=== PATIENT | male | born 1975 | race Caucasian/White ===

== ENCOUNTER → 2017-04-14 02:56 | Emergency (ER) | payer OTHER ==
[~2017-04-14 02:56] MED LIST: GENTAMICIN ADULT IVPB ONE; Ketorolac INJ* 30 MG/ML 1 ML VIAL IV ONE; NS 0.9% 1000 ML* 2,000 ML IV ONE; NS 0.9% 1000 ML* 500 ML IV ONE; NS 0.9% IVPB ONE; Ondansetron INJ* 2 MG/ML VIAL IV ONE
[2017-04-14 03:58] LABS: Hematocrit 42 % (42-52); Hemoglobin 14.7 g/dl (14.0-18.0); Mean Corpuscular HGB Conc 35 g/dl (31-36); Mean Corpuscular Hemoglobin 32 pg (27-31); Mean Corpuscular Volume 91 fL (80-94); Mean Platelet Volume 7 um3 (7.4-10.4); Red Blood Count 4.64 10^6/ul (4.0-5.4); Red Cell Distribution Width 13 % (10.5-15); White Blood Count 7.6 10^3/ul (3.5-10.8)
[2017-04-14 04:05] LABS: Urine Bacteria Absent (Absent); Urine Bilirubin Negative (Negative); Urine Glucose 3+(>=500 mg/dL) (Negative); Urine Nitrite Negative (Negative)
[2017-04-14 04:17] LABS: ALT 27 U/L (7-52); Alkaline Phosphatase 47 U/L (34-104); BUN/Creatinine Ratio 12.5 (8-20); Blood Urea Nitrogen 14 mg/dL (6-24); C Reactive Protein 1.07 mg/L (< 5.00); CO2 Carbon Dioxide 28 mmol/L (22-32); Calcium 9.3 mg/dL (8.6-10.3); Chloride 100 mmol/L (101-111); EGFR African American 93.4 (>60); EGFR Non-African American 72.6 (>60); Glucose 313 mg/dL (70-100); Lipase 40 U/L (11.0-82.0); Sodium 133 mmol/L (133-145); Total Protein 6.8 g/dL (6.4-8.9)
[2017-04-14 04:42] LABS: Anion Gap 5 mmol/L (2-11)
--- NOTE | 2017-04-14 05:42 | ED ---
Nilesh Hoyt Angela, scribed for Margret Anaya MD on 04/14/17 at 0324 . Back Pain - HPI Summary HPI Summary: This pt is a 41 y/o male presenting [facility] c/o right flank pain since 0030 today. Pt reports that his pain has progressively worsened. He additionally c/o nausea, urinary frequency and urgency. Pt denies fever, chills. Pt has PMHx: kidney stone, diabetes type II, hypercholesterolemia. He states that he smokes marijuana and drinks alcohol occasionally. His PCP is Dr. Clark. - History of Current Complaint Chief Complaint: EDFlankPain Stated Complaint: RIGHT FLANK PAIN Hx Obtained From: Patient Onset/Duration: Sudden Onset Onset/Duration: Started Hours Ago Timing: Constant Back Pain Location: Is Discrete @ - right flank pain Pain Intensity: 8 Pain Scale Used: 0-10 Numeric Associated Signs And Symptoms: Positive: Flank Pain - right sided, Other - nausea. Negative: Fever, Weakness, Numbness - Allergies/Home Medications Allergies/Adverse Reactions: Allergies Allergy/AdvReac Type Severity Reaction Status Date / Time Bee Venom Allergy Severe Swelling Verified 04/14/17 03:18 Of Face,Lips,& Throat Ibuprofen Allergy Swelling Verified 04/14/17 03:18 PMH/Surg Hx/FS Hx/Imm Hx Endocrine/Hematology History: Reports: Hx Diabetes - type II Denies: Hx Thyroid Disease Cardiovascular History: Reports: Hx Hypercholesterolemia Denies: Hx Hypertension, Hx Pacemaker/ICD Respiratory History: Reports: Hx Pneumonia Denies: Hx Asthma, Hx Chronic Obstructive Pulmonary Disease (COPD) GI History: Denies: Hx Ulcer Sensory History: Reports: Hx Contacts or Glasses, Hx Vision Problem, Hx Hearing Problem - 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 VASECTOMY. WISDOM TEETH Infectious Disease History: No Infectious Disease History: Denies: Hx Clostridium Difficile, Hx Hepatitis, Hx Human Immunodeficiency Virus (HIV), Hx of Known/Suspected MRSA, Hx Shingles, Hx Tuberculosis, Hx Known/ Suspected VRE, Hx Known/Suspected VRSA, History Other Infectious Disease, Traveled Outside the [place] in Last 30 Days - Family History Known Family History: Positive: Cardiac Disease, Diabetes, Other - Denies FHx of kidney stones - Social History Lives: With Family - Alcohol Use: Occasionally Alcohol Amount: a few times a week Substance Use Type: Reports: Marijuana Substance Use Comment - Amount & Last Used: occasionally Smoking Status (MU): Never Smoked Tobacco Have You Smoked in the Last Year: No Review of Systems Negative: Fever, Chills Eyes: Negative ENT: Negative Negative: Palpitations, Chest Pain Negative: Shortness Of Breath Positive: Nausea. Negative: Abdominal Pain, Vomiting, Diarrhea Positive: frequency, urgency Musculoskeletal: Negative Skin: Negative Negative: Headache, Weakness All Other Systems Reviewed And Are Negative: Yes Physical Exam Triage Information Reviewed: Yes Vital Signs On Initial Exam: Initial Vitals Temp Pulse Resp BP Pulse Ox 97.3 F 95 18 141/111 99 04/14/17 03:04/14/17 03:04/14/17 03:04/14/17 03:04/14/17 03:09 Vital Signs Reviewed: Yes Appearance: Positive: Well-Appearing, No Pain Distress Skin: Positive: Warm, Skin Color Reflects Adequate Perfusion, Dry Eyes: Positive: EOMI, HOWARD ENT: Positive: Pharynx normal, TMs normal Neck: Positive: Supple, Nontender Respiratory/Lung Sounds: Positive: Clear to Auscultation, Breath Sounds Present. Negative: Rales, Rhonchi, Wheezes Cardiovascular: Positive: RRR. Negative: Murmur, Rub, Other - gallop Abdomen Description: Positive: Nontender, Soft. Negative: Distended, Guarding, Other: - rebound Bowel Sounds: Positive: Present Musculoskeletal: Positive: Strength/ROM Intact. Negative: Edema Left, Edema Right Neurological: Positive: Sensory/Motor Intact, Alert, Oriented to Person Place, Time, CN Intact II-III Psychiatric: Positive: Affect/Mood Appropriate - Gerald Coma Scale Coma Scale Total: 15 Diagnostics - Vital Signs Vital Signs Temp Pulse Resp BP Pulse Ox 04/14/17 03:17 97.3 F 95 18 141/111 99 04/14/17 03:09 97.3 F 95 18 141/111 99 - Laboratory Lab Results: Lab Results 04/14/17 04/14/17 04/14/17 Range/Units 03:45 03:45 03:45 WBC 7.6 (3.5-10.8) 10^3/ul RBC 4.64 (4.0-5.4) 10^6/ul Hgb 14.7 (14.0-18.0) g/dl Hct 42 (42-52) % MCV 91 (80-94) fL MCH 32 H (27-31) pg MCHC 35 (31-36) g/dl RDW 13 (10.5-15) % Plt Count 205 (150-450) 10^3/ul MPV 7 L (7.4-10.4) um3 Neut % (Auto) 67.3 (38-83) % Lymph % (Auto) 22.5 L (25-47) % Whitman % (Auto) 7.5 (1-9) % Eos % (Auto) 2.2 (0-6) % Baso % (Auto) 0.5 (0-2) % Absolute Neuts (auto) 5.1 (1.5-7.7) 10^3/ul Absolute Lymphs (auto) 1.7 (1.0-4.8) 10^3/ul Absolute Monos (auto) 0.6 (0-0.8) 10^3/ul Absolute Eos (auto) 0.2 (0-0.6) 10^3/ul Absolute Basos (auto) 0 (0-0.2) 10^3/ul Absolute Nucleated RBC 0 10^3/ul Nucleated RBC % 0.1 Sodium 133 (133-145) mmol/L Potassium TNP Chloride 100 L (101-111) mmol/L Carbon Dioxide 28 (22-32) mmol/L Anion Gap 5 (2-11) mmol/L BUN 14 (6-24) mg/dL Creatinine 1.12 (0.67-1.17) mg/dL Est GFR ( Amer) 93.4 (>60) Est GFR (Non-Af Amer) 72.6 (>60) BUN/Creatinine Ratio 12.5 (8-20) Glucose 313 H (70-100) mg/dL Calcium 9.3 (8.6-10.3) mg/dL Total Bilirubin 0.90 (0.2-1.0) mg/dL AST TNP ALT 27 (7-52) U/L Alkaline Phosphatase 47 (34-104) U/L C-Reactive Protein 1.07 (< 5.00) mg/L Total Protein 6.8 (6.4-8.9) g/dL Albumin Pending Globulin Pending Albumin/Globulin Ratio Pending Lipase 40 (11.0-82.0) U/L Urine Color Yellow Urine Appearance Clear Urine pH 6.0 (5-9) Ur Specific [place] 1.025 (1.010-1.030) Urine Protein Negative (Negative) Urine Ketones Negative (Negative) Urine Blood 3+ H (Negative) Urine Nitrate Negative (Negative) Urine Bilirubin Negative (Negative) Urine Urobilinogen Negative (Negative) Ur Leukocyte Esterase Negative (Negative) Urine WBC (Auto) 2+(11-20/hpf) H (Absent) Urine RBC (Auto) 3+(>10/hpf) H (Absent) Urine Bacteria Absent (Absent) Urine Glucose 3+(>=500 mg/dl) H (Negative) 04/14/17 Range/Units 04:50 WBC (3.5-10.8) 10^3/ul RBC (4.0-5.4) 10^6/ul Hgb (14.0-18.0) g/dl Hct (42-52) % MCV (80-94) fL MCH (27-31) pg MCHC (31-36) g/dl RDW (10.5-15) % Plt Count (150-450) 10^3/ul MPV (7.4-10.4) um3 Neut % (Auto) (38-83) % Lymph % (Auto) (25-47) % Whitman % (Auto) (1-9) % Eos % (Auto) (0-6) % Baso % (Auto) (0-2) % Absolute Neuts (auto) (1.5-7.7) 10^3/ul Absolute Lymphs (auto) (1.0-4.8) 10^3/ul Absolute Monos (auto) (0-0.8) 10^3/ul Absolute Eos (auto) (0-0.6) 10^3/ul Absolute Basos (auto) (0-0.2) 10^3/ul Absolute Nucleated RBC 10^3/ul Nucleated RBC % Sodium (133-145) mmol/L Potassium TNP Chloride (101-111) mmol/L Carbon Dioxide (22-32) mmol/L Anion Gap (2-11) mmol/L BUN (6-24) mg/dL Creatinine (0.67-1.17) mg/dL Est GFR ( Amer) (>60) Est GFR (Non-Af Amer) (>60) BUN/Creatinine Ratio (8-20) Glucose (70-100) mg/dL Calcium (8.6-10.3) mg/dL Total Bilirubin (0.2-1.0) mg/dL AST TNP ALT (7-52) U/L Alkaline Phosphatase (34-104) U/L C-Reactive Protein (< 5.00) mg/L Total Protein (6.4-8.9) g/dL Albumin Globulin Albumin/Globulin Ratio Lipase (11.0-82.0) U/L Urine Color Urine Appearance Urine pH (5-9) Ur Specific [place] (1.010-1.030) Urine Protein (Negative) Urine Ketones (Negative) Urine Blood (Negative) Urine Nitrate (Negative) Urine Bilirubin (Negative) Urine Urobilinogen (Negative) Ur Leukocyte Esterase (Negative) Urine WBC (Auto) (Absent) Urine RBC (Auto) (Absent) Urine Bacteria (Absent) Urine Glucose (Negative) Result Diagrams: 04/14/17 03:45 04/14/17 04:50 Lab Statement: Any lab studies that have been ordered have been reviewed, and results considered in the medical decision making process. - CT Abdomen/Pelvis CT CT Interpretation: Positive (See Comments) - IMPRESSION: Mild right hydronephrosis and perinephric inflammation secondary to a 4 mm distal right ureteral stone. Multiple additional small bilateral renal stones. Fatty liver. ED physician has reviewed this radiology report and agrees. CT Interpretation Completed By: Radiologist Back Pain Course/Dx - Course Course Of Treatment: 41 yo male with pmh of kidney stones here with right flank pain with onset just after midnight. Pt is diabetic and has a 4mm distal ureteral stone with urine showing 11-20 wbc's. Case was discussed with Dr. Peters who asked for 2mg/kg of gent in addition to the 2grams of ceftriaxone already given and 500 cc of NS in addition to the 2L of NS already given. Pt will also get a kub and is being kept NPO. Dr. Peters will be coming to see the pt in the ED this am and pt is being signed out to Dr. Gonzalez - Diagnoses Provider Diagnoses: Kidney stone on right side, UTI (urinary tract infection) - Provider Notifications Discussed Care Of Patient With: Dillon Us Time Discussed With Above Provider: 05:35 Instructed by Provider To: Other - I discussed the pt's case with Dr. Us. He will come see the pt in the ED. Discharge - Discharge Plan Condition: Stable Disposition: OTHER Discharge Disposition Comment: to be determined The documentation as recorded by the Nilesh foley Angela accurately reflects the service I personally performed and the decisions made by me, Margret Anaya MD.
[2017-04-14 06:18] LABS: Albumin 4.2 g/dL (3.2-5.2); Globulin 2.6 g/dL (2-4)
--- NOTE | 2017-04-14 08:14 | RAD ---
CLINICAL HISTORY: Right flank pain COMPARISON: April 01, 2015 TECHNIQUE: Multiple contiguous axial CT scans were obtained of the abdomen and pelvis, without intravenous contrast enhancement. Coronal and sagittal multiplanar reformations are submitted for review. Oral contrast was not administered. FINDINGS: The study is limited by the lack of intravenous contrast. This limits evaluation of the solid organs and vasculature. LUNG BASES: The lung bases are clear. LIVER: The liver is diffusely low in attenuation compared to the spleen. There are no focal hepatic parenchymal masses. The liver measures 18.9 cm in long axis. BILE DUCTS: There is no intrahepatic or extrahepatic biliary dilatation. GALLBLADDER: The gallbladder is incompletely distended but is grossly normal. PANCREAS: The pancreas is normal, without mass or ductal dilatation. SPLEEN: Normal in size and appearance. UPPER GI TRACT: Evaluation of the gastrointestinal tract is limited by incomplete gastric distention. The upper GI tract is unremarkable. SMALL BOWEL AND MESENTERY: There is no obstruction. There is mild stranding of mesenteric fat with prominence of mesenteric lymph nodes without lymphadenopathy by size criteria. COLON: The colon is normal in contour, course, caliber. There is no pericolonic inflammatory change. ADRENALS: Normal bilaterally. KIDNEYS: There are multiple bilateral renal calyceal stones measuring up to 0.3 cm in size. There is a 0.4 cm right UVJ stone with mild hydroureter. BLADDER: As noted above, there is a right UVJ stone. The bladder is incompletely distended but is otherwise grossly normal. PELVIC ORGANS: The prostate gland is normal. The seminal vesicles are symmetric. AORTA: The aorta is normal. IVC: Unremarkable LYMPH NODES: As noted above, there are prominent but not pathologically enlarged mesenteric lymph nodes at the root of the small bowel mesentery. There is no lymphadenopathy by size criteria. ABDOMINAL WALL: There is no evidence for abdominal wall hernia. BONES AND SOFT TISSUES: Mild degenerative changes are noted OTHER: None IMPRESSION: 1. BILATERAL HYDRONEPHROSIS, INCLUDING A 0.4 CM RIGHT UVJ STONE WITH MILD HYDROURETER. 2. HEPATOMEGALY WITH FATTY INFILTRATION OF THE LIVER. 3. MILD STRANDING OF THE MESENTERIC FAT WITH PROMINENT MESENTERIC LYMPH NODES. THE DIFFERENTIAL INCLUDES MESENTERIC PANNICULITIS.
--- NOTE | 2017-04-14 08:20 | RAD ---
HISTORY: Distal ureteral stone COMPARISONS: CT dated April 14, 2017 VIEWS: Frontal views of the abdomen. FINDINGS: BOWEL: There is a nonobstructive bowel gas pattern. There is a moderate amount of stool within the colon. CALCULI: The renal calyceal stones noted on CT are not well visualized, though evaluation is limited by overlying bowel. There is a calculus of the right lower hemipelvis which appears to correspond to the right UVJ stone. BONES AND SOFT TISSUES: There are no osseous abnormalities. OTHER FINDINGS: The lung bases are clear. There is no subphrenic gas. IMPRESSION: RIGHT PELVIC CALCULUS THAT APPEARS TO CORRESPOND TO THE RIGHT UVJ STONE NOTED ON CT
--- NOTE | 2017-04-14 10:03 | RAD ---
HISTORY: Bilateral hydronephrosis, right UVJ stone COMPARISONS: CT dated April 14, 2017 TECHNIQUE: Multiple transverse and longitudinal ultrasound images were obtained of the pelvis using grayscale and color Doppler imaging using the transabdominal transducer. FINDINGS: PROSTATE: Prostate gland is homogeneous in echotexture The prostate gland measures 3.9 x 3.2 x 3.9 centimeters, for a volume of 25.8 milliliters. SEMINAL VESICLES: The seminal vesicles are not well-visualized BLADDER: The bladder is smooth in contour. Bilateral ureteral jets are identified. The prevoid bladder volume is 176 milliliters.. The postvoid bladder volume is 3 milliliters. IMPRESSION: BILATERAL URETERAL JETS ARE NOTED. THERE IS A 3 ML POST VOID RESIDUAL.
--- NOTE | 2017-04-14 11:43 | ED ---
Kim Hoyt Thomas, scribed for Tom Gonzalez MD on 04/14/17 at 1126 . Progress - Progress Note Progress Note: The patient is a sign out from Dr. Anaya at shift change. Dr. Us, urology, came to see the patient in the ED at 08:00. He checked an U/S to make sure he had bilateral jets which he did. The patient is diagnosed with kidney stone and is discharged home in stable condition.. Course/Dx - Diagnoses Provider Diagnoses: Kidney stone The documentation as recorded by the iKm floey Thomas accurately reflects the service I personally performed and the decisions made by me, Tom Gonzalez MD.
[2017-04-14 12:05] VITALS: BP 128/74
--- NOTE | 2017-04-14 14:58 | CONS ---
CC: Dr. Leroy Clark * UROLOGY CONSULTATION: DATE OF CONSULTATION: 04/14/17 REQUESTING PHYSICIAN: Dr. Margret Anaya. DIAGNOSES: 1. Right hydronephrosis. 2. Calculus, right ureter. HISTORY: Sukumar Linn is a 41-year-old diabetic who presented to the emergency room with right flank pain and nausea. CT scan revealed a 4 to 5 mm obstructing stone at the right ureterovesical junction with right hydronephrosis. He has required intravenous analgesics and at the time of this consultation, at around 7:30, had just requested and received an additional dose of analgesics 10 minutes prior to that. He still describes the pain as moderate. PAST MEDICAL HISTORY: Significant for: 1. Diabetes mellitus. 2. High cholesterol. MEDICATIONS ON ADMISSION: 1. Insulin 10 units subcu daily. 2. Valtrex 500 mg daily p.r.n. 3. Glucophage extended release 750 mg b.i.d. 4. Naprosyn p.r.n. ALLERGIES AND INTOLERANCES: IBUPROFEN and BEE VENOM. REVIEW OF SYSTEMS: He denies any chest pain or shortness of breath. There is no other major systemic illness. PHYSICAL EXAMINATION: Physical exam reveals a pleasant, moderately uncomfortable young gentleman. Blood pressures 133/83, pulse 84 per minute regular, temperature 98.1, oxygen saturation 98% on room air. Cardiovascular Exam: Regular rate and rhythm. S1, S2. Lungs are clear bilaterally. Abdomen is soft with mild right flank tenderness. DIAGNOSTIC STUDIES/LAB DATA: Review of labs revealed a white count of 7.6, hemoglobin is 14.7, hematocrit is 42, platelet count is 205. BUN and creatinine are normal at 14 and 1.1 respectively. Urinalysis revealed 3+ blood , 2+ white blood cells and absent bacteria. PLAN/RECOMMENDATIONS: I reviewed the labs and the imaging studies and had a detailed discussion with Sukumar regarding the management of a 4 to 5 mm distal right ureteral calculus. I recommended conservative management, including oral analgesics and Flomax to help with medical expulsive therapy. At the present time, I do not see any indication for surgical intervention and I have explained this to him. Because of the continued pain he would like to be observed in the emergency room for a little bit longer and this is certainly reasonable. I have also instructed him to call me if he has worsening pain, fever over 101 and otherwise he has been instructed to call me for outpatient followup. [id number]/[facility] #: [id number] YARELY
== END ==
LOC: ED 02:56
DX: N20.0 Calculus of kidney (principal); R10.84 Generalized abdominal pain; N39.0 Urinary tract infection, site not specified
CPT/HCPCS: 36415; 74000; 74176; 76857; 80053; 81003; 81015; 83690; 85025; 86140; 96374; 96375; 99284; J0696; J1580; J1885; J2405

== ENCOUNTER 2017-04-16 03:22 | Observation (INO) | payer OTHER ==
[2017-04-16] MEDS ORDERED: diPHENhydraMINE IV* 50 MG/ML 1 ml VIAL (BENADRYL) IV ONE (03:51)
[2017-04-16] MEDS ORDERED: Famotidine IV* 10 MG/ML 2 ML (20 mg) IV SLOW PU ONE (03:51)
[2017-04-16] MEDS ORDERED: methylPREDNISolone 125 MG* 2 ML VIAL IV ONE (03:51)
[2017-04-16] MEDS ORDERED: Albuterol 2.5 MG/3 ML NEB.SOL* (0.083%) INH ONE (03:52)
[2017-04-16] MEDS ORDERED: Morphine INJ* 4 MG/ML 1 ML CARPUJECT IV ONE ×2 (03:53→05:11)
[2017-04-16] MEDS ORDERED: NS 0.9% 1000 ML* 1,000 ML IV ONE (03:54)
[2017-04-16] MEDS ORDERED: Ondansetron INJ* 2 MG/ML VIAL IV ONE ×2 (03:54→05:50)
[2017-04-16] MEDS ORDERED: Magnesium CITRATE* 300 ML BTL PO ONE (05:24)
[2017-04-16] MEDS ORDERED: Sodium Phosphate ADULT ENEMA* 118 ml bottle PR ONE (05:24)
[2017-04-16] MEDS ORDERED: Ondansetron INJ* 2 MG/ML VIAL ONE ×2 (05:40→14:20)
[2017-04-16 06:02] LABS: Hematocrit 41 % (42-52); Hemoglobin 14.2 g/dl (14.0-18.0); Mean Corpuscular HGB Conc 35 g/dl (31-36); Mean Corpuscular Hemoglobin 32 pg (27-31); Mean Corpuscular Volume 91 fL (80-94); Mean Platelet Volume 8 um3 (7.4-10.4); Red Blood Count 4.49 10^6/ul (4.0-5.4); Red Cell Distribution Width 13 % (10.5-15)
[2017-04-16 06:13] LABS: BUN/Creatinine Ratio 14.1 (8-20); Calcium 9.2 mg/dL (8.6-10.3); EGFR Non-African American 62.2 (>60)
[2017-04-16 06:33] LABS: Potassium 4.2 mmol/L (3.5-5.0)
[2017-04-16] MEDS ORDERED: diPHENhydraMINE IV* 50 MG/ML 1 ml VIAL (BENADRYL) SLOW PUSH ONE (07:25)
--- NOTE | 2017-04-16 08:35 | RAD ---
Indication: Follow-up RIGHT ureteral stones. Comparison: April 14, 2017 CT and ultrasound of the urinary bladder. Technique: Ultrasound urinary bladder. REPORT AND IMPRESSION: 239 mL estimated prevoid urinary bladder volume. Upper normal 3.7 mm urinary bladder wall. No focal bladder lesions evident. Decreased magnitude RIGHT versus LEFT ureteral jet. 0.6 cm shadowing stone at the RIGHT ureterovesicular junction without change compared with the prior CT.
--- NOTE | 2017-04-16 08:51 | RAD ---
Indication: RIGHT flank pain. Assess for stone position. Stone at the ureterovesicular junction on April 14, 2017 CT. Comparison: April 16, 2017 urinary bladder ultrasound, April 14, [address] Technique: Supine view of the abdomen. Report: Unremarkable bowel gas pattern. Large volume of stool in the colon without moderate rectal distension. 4 mm calcification visualized at the level of the RIGHT ureterovesicular junction without change. The renal fossa are significantly obscured due to bowel contents without definitive visualized stones despite finding on prior CT. Unremarkable soft tissue contours. IMPRESSION: Persistent stone at the RIGHT ureterovesicular junction.
[2017-04-16] MEDS ORDERED: Ondansetron INJ* 2 MG/ML VIAL IV PRN ×2 (08:54→14:12)
[2017-04-16] MEDS ORDERED: Morphine INJ* 4 MG/ML 1 ML CARPUJECT IV PRN (08:54)
--- NOTE | 2017-04-16 09:38 | PN ---
Bradly Hoyt SooYoung, scribed for Kevin Wilson MD on 04/16/17 at 0824 . Progress Note - Progress Note Date of Service: 04/16/17 Note: Signed out from Dr. Brown pending U/S results. Pt is a 41 y/o M BIBA presenting to ED with allergic reaction to Percocet. Known kidney stones. 0815: ED Physician at bedside Updating pt about U/S results and consult with Dr. Us. Discussing with pt preference for D/C or admittance. Pt states a preference for being admitted due to the kidney stone as well as the allergic reaction to Percocet. He states mild pain, but is mostly feeling tired. He took Mg citrate approx 90 minutes ago. Brief PE is nml. DIAGNOSTICS Bladder U/S as read by radiologist REPORT AND IMPRESSION: 239 mL estimated prevoid urinary bladder volume. Upper normal 3.7 mm urinary bladder wall. No focal bladder lesions evident. Decreased magnitude RIGHT versus LEFT ureteral jet. 0.6 cm shadowing stone at the RIGHT ureterovesicular junction without change compared with the prior CT. ED physician has reviewed this radiology report and agrees. P/E: Vital signs reviewed. Vital signs: reviewed General: Patient is comfortable lying in stretcher with no signs of distress HEENT: within normal limits Lungs: CTA B/L CVS: S1 & S2 present. No murmurs appreciated. ABDOMEN: Soft, non-tender. No signs of distention. No rebound no guarding, and no masses palpated. Bowel sounds are normal. EXTREMITIES: FROM in all major joints, no edema, no cyanosis or clubbing. NEURO: Alert and oriented x 3. No acute neurological deficits. Speech is normal and follows commands. SKIN: Dry and warm CONSULTS 0813: Consulted with Dr. Us, urology Recommends D/C is pt is comfortable, otherwise admit to hospitalist. 0818: Consulted with Dr. Us, urology Agrees with admission to the hospitalist. 0851: Consulted with Dr. Fields, hospitalist Will admit patient to her services. DX: KIDNEY STONES. CONSTIPATION. ALLERGIC REACTION. DISPO: STABLE. ADMIT TO [facility]. The documentation as recorded by the Bradly foley SooYoung accurately reflects the service I personally performed and the decisions made by , Kevin Wilson MD.
[2017-04-16] MEDS ORDERED: NS 0.9% 1000 ML* 1,000 ML IV SCH (11:45)
[2017-04-16] MEDS ORDERED: Influenza VAC *QUAD* 2017-18* 0.5 ML SYRINGE IM ONE (12:00)
[2017-04-16] MEDS ORDERED: fentaNYL* 50 MCG/ML 2 ML VIAL (100 MCG VIAL) ONE (13:31)
[2017-04-16] MEDS ORDERED: Midazolam* 1 MG/ML 5 ML VIAL (5 MG) ONE (13:31)
[2017-04-16] MEDS ORDERED: Propofol* 10 MG/ML 20 ML BTL IV PUSH ONE (13:31)
[2017-04-16] MEDS ORDERED: Dexamethasone IV* 4 MG/ML 1 ML (4 MG) ONE (13:31)
[2017-04-16] MEDS ORDERED: Iohexol 180 (CONTRAST) 10 ML SDV IV ONE (13:39)
[2017-04-16] MEDS ORDERED: Dextrose 50% Syringe 50 ML* 25 GM/50 ML SYRINGE IV PUSH PRN (13:50)
[2017-04-16] MEDS ORDERED: Scopolamine 1.5 mg* PATCH TRANSDERM PRN (14:12)
[2017-04-16] MEDS ORDERED: fentaNYL* 50 MCG/ML 2 ML VIAL (100 MCG VIAL) IV PRN (14:12)
[2017-04-16] MEDS ORDERED: DiMENhydriNATE IV* 50 MG/ML VIAL IV PUSH PRN (14:12)
[2017-04-16] MEDS: Insulin LISPRO* 1 UNITS UNIT SUBCUT SCH ×2 (16:09→17:34)
--- NOTE | 2017-04-16 16:14 | HP ---
CC: Leroy Clark MD * HISTORY AND PHYSICAL: DATE OF ADMISSION: 04/16/17 PRIMARY CARE PROVIDER: Leroy Clark MD ATTENDING PHYSICIAN: Madelyn Paiz MD* (dictated by Esperanza Foster NP). CHIEF COMPLAINT: Allergic reaction to medications. HISTORY OF PRESENT ILLNESS: Mr. Linn is a 41-year-old male with a past medical history of significant for kidney stones, diabetes mellitus, hypertension and hyperlipidemia, who presented to the emergency room with complaints of allergic reaction after taking PERCOCET, CIPRO, and FLOMAX at home. The patient states that he woke up first with itching in his scalp that then spread over his body. He then developed hives, wheezing, and tongue swelling and had lip tingling. He has an EpiPen at home due to a BEE allergy, and administered his own EpiPen. He was also administered Benadryl by EMS. The patient was brought to the emergency room by EMS. While in the emergency room, the patient received Solu-Medrol, Benadryl, and albuterol nebulizer in addition to IV fluids, Zofran for his allergic reaction. The patient also had an abdominal x-ray as the patient had been passing a kidney stone since Monday. The patient's KUB showed a persistent stone at the right ureterovesical junction. He also had a bladder ultrasound showing a decreased magnitude of the right versus left ureteral jet and shadowing stone at the right ureterovesical junction without change compared to the prior CT. The hospitalists were asked to evaluate the patient for admission. The patient denies any fever, chills, chest pain. He does report having shortness of breath during his episode of the allergic reaction in addition to nausea and constipation. PAST MEDICAL HISTORY: 1. Kidney stones. 2. Diabetes mellitus. 3. Hypertension. 4. Hyperlipidemia. PAST SURGICAL HISTORY: 1. Status post facetectomy. 2. Status post left knee surgery. HOME MEDICATIONS: Include: 1. PERCOCET 5/325 mg 1 tablet oral every 6 hours as needed for pain. 2. Lisinopril 2.5 mg oral daily. 3. Lantus 30 units subcutaneous every 24 hours. 4. Lipitor 20 mg oral daily. 5. Valtrex 500 mg oral daily as needed for outbreak. 6. FLOMAX 0.4 mg oral daily. 7. Metformin 1000 mg oral twice daily. 8. Vascepa 2 tablets oral daily. 9. CIPRO 500 mg oral daily. ALLERGIES: BEES, CIPRO, PERCOCET and FLOMAX. FAMILY HISTORY: The patient's reports a grandfather with myocardial infarction. The patient's father had a history of diabetes mellitus. He also states that his paternal and maternal families have a strong prevalence of diabetes mellitus. There is no family history of cancer. SOCIAL HISTORY: The patient denies tobacco. He drinks beer a few times a week. He occasionally smokes marijuana. He is and his , Marilou Linn, will be his surrogate decision maker in the event he is unable to make decisions for himself. REVIEW OF SYSTEMS: I performed a 14-point review of systems. All the pertinent positives and negatives are mentioned in the history of present illness. The remaining review of systems are negative. PHYSICAL EXAMINATION GENERAL APPEARANCE: The patient is alert, pleasant, appears to be in no acute distress. VITAL SIGNS: Temperature 99.2, heart rate 82, respiratory rate 20, O2 saturation 98% on room air, blood pressure 148/89. HEENT: Normocephalic, atraumatic. Pupils are equal and reactive to light. Extraocular movements are intact. RESPIRATORY: There is no accessory muscle use. Lungs are clear to auscultation bilaterally. CARDIOVASCULAR: Regular rate and rhythm. S1 and S2 present. There are no murmurs, rubs, or gallops heard. ABDOMEN: Soft, nontender, nondistended. Bowel sounds present x4. EXTREMITIES: There is no lower extremity edema. DP and PT pulses are 2+ and symmetric. MUSCULOSKELETAL: There is no clubbing or cyanosis noted. The patient exhibits good strength in all extremities. NEUROLOGICAL: The patient is alert and oriented. Cranial nerves II through XII are grossly intact. PSYCHOLOGICAL: The patient is calm and cooperative. SKIN: There is no rashes or abnormalities seen. DIAGNOSTIC STUDIES/LABORATORY DATA: Sodium 133, potassium 4.2, chloride 100, CO2 26, BUN 18, creatinine 1.28. Glucose 328. White blood cell count 12.0, hemoglobin 14.2, hematocrit 41, and platelet count 206,000. EKG shows a normal sinus rhythm and a rate of 71. There are no acute signs of ischemia and no previous EKGs for comparison. 1. Abdominal x-ray from 09/17/17. Radiologist's impression: Persistent stone at the right ureterovesical junction. 2. Bladder ultrasound from 04/16/17. Radiologist's impression: 239 mL estimated prevoid urinary bladder volume. Upper normal 3.7 mm urinary bladder wall. No focal bladder lesion evident. Decreased magnitude right versus left ureteral junction. A 0.6 cm shadowing stone at the right ureterovesical junction without change compared with the prior CT. IMPRESSION: Mr. Linn is a 41-year-old male with a past medical history significant for kidney stones, diabetes mellitus, hypertension and hyperlipidemia, who presented to the emergency room after an anaphylactic reaction to medications. He will be admitted on observation for renal colic. ASSESSMENT/PLAN: 1. Renal colic. Due to the patient's allergic reaction to the PERCOCET, FLOMAX and CIPRO he was on for his kidney stone, Dr. Us has decided to come in and do a cysto on the patient today. He will have IV fluids. We will provide him with pain medication and nausea medicine and supportive care. 2. Anaphylactic reaction to medications. It is unclear which mediation caused the reaction. The patient is also on lisinopril and this could have been an angioedema reaction. We will stop his lisinopril. We will continue him on Benadryl, prednisone taper and Pepcid for the allergic reaction. 3. Hypertension. The patient has been hypertensive while he is here. We are going to discontinue his lisinopril and change that to Norvasc. 4. Diabetes mellitus. For now, we are going to hold the patient's Lantus. We will do glucose checks and place him on a lispro sliding scale. We are going to hold his metformin. 5. Hyperlipidemia. We will continue the patient on his home atorvastatin and Vascepa. 6. Fluids, electrolytes and nutrition. N.p.o. for surgery. After the surgery , the patient can be resumed on a consistent carbohydrate diet. 7. Code status. Full code. 8. DVT prophylaxis. The patient is at low risk and will be encouraged to ambulate. 9. Disposition. Observation. TIME SPENT: Time for this admission was approximately 60 minutes, greater than half of that was spent with the patient discussing medications, past medical history, and events leading up to his arrival today and performing a physical examination. The case has been reviewed with the attending, Dr. Paiz, who agrees with the plan of care. Reviewed by ESPERANZA FOSTER, AROLDO-C 04/24/17 2101 [id number]/[facility] #: [id number] YARELY
[2017-04-16] MEDS ORDERED: Lidocaine 2% JELLY* 6 ML JELLY TOPICAL PRN (16:30)
--- NOTE | 2017-04-16 16:47 | RAD ---
INDICATION: Cystoscopy, RIGHT ureteroscopy, laser lithotripsy, stone extraction, retrograde stent placement. COMPARISON: Ultrasound of the urinary bladder April 16, 2017. TECHNIQUE: 15 seconds fluoroscopy. FINDINGS: RIGHT retrograde pyelogram is without significant caliectasis. RIGHT ureteral stent placed. IMPRESSION: Procedural fluoroscopy. CPT II Codes: 6045F
[2017-04-16] MEDS ORDERED: diPHENhydraMINE PO* 25 MG PO SCH (18:00)
[2017-04-16 18:06] VITALS: BP 132/75
[2017-04-16] MEDS ORDERED: Famotidine TAB* 20 MG PO SCH (21:00)
--- NOTE | 2017-04-17 02:36 | OP ---
CC: Dr. Leroy Clark * DATE OF OPERATION: 04/16/17 - ROOM #350 DATE OF : 77 SURGEON: Dillon Us MD ANESTHESIOLOGIST: Vernon Weaver MD ANESTHESIA: General. PRE-OP DIAGNOSES: 1. Right hydronephrosis. 2. Calculus, right ureter. POST-OP DIAGNOSES: 1. Right hydronephrosis. 2. Calculus, right ureter. OPERATIVE PROCEDURE: Cystoscopy, right retrograde pyelogram, right ureteroscopy and laser lithotripsy and removal of stone fragments, and right stent insertion. INDICATIONS: Sukumar Linn is a 41-year-old gentleman who has had persistent right-sided pain secondary to a calculus in the right distal ureter. He was managed conservatively, but because of persistence of pain, he is now being brought in for right ureteroscopy. OPERATIVE FINDINGS: Approximately 5-mm calculus impacted in right distal ureter with surrounding edema and inflammation. COMPLICATIONS: None. STENT USED: 6-Indian stent, right ureter. POSTOPERATIVE CONDITION: Stable. DESCRIPTION OF PROCEDURE: After induction of general anesthesia, the patient was placed in dorsal lithotomy position. Sequential compression devices were in place and functioning. Initial cystoscopy revealed a mild stricture at the meatus. The remainder of the urethra was unremarkable. The bladder was examined. There was inflammatory response surrounding the right orifice, but the bladder was otherwise unremarkable. A guidewire was introduced into the right ureter. Retrograde pyelogram revealed mild fullness of the right collecting system. A 6-Indian semi-rigid ureteroscope was introduced and advanced under direct vision. Just above the ureterovesical junction, an irregularly shaped 5- to 6-mm calculus was noted to be impacted with surrounding inflammatory response. Using a 550 micron Holmium laser, this was successfully fragmented and all of the sizable fragments were retrieved. A 6- Indian stent was introduced and positioned under fluoroscopy with good proximal and distal positioning obtained. The patient tolerated the procedure satisfactorily and was transferred back to the recovery area in stable condition. [id number]/[facility] #: [id number] MTDD
--- NOTE | 2017-04-17 05:20 | DS ---
CC: Dr. Leroy Clark; Dr. Dillon Us * DISCHARGE SUMMARY: DATE OF ADMISSION: 04/16/17 DATE OF DISCHARGE: 04/16/17 ATTENDING PHYSICIAN: Dr. Madelyn Paiz MD * (dictated by Chelo Foster NP). PRIMARY CARE PROVIDER: Dr. Leroy Clark PRIMARY DIAGNOSES: 1. Anaphylaxis. 2. Renal colic. SECONDARY DIAGNOSES: 1. Diabetes mellitus. 2. Hypertension. 3. Hyperlipidemia. CONSULTATIONS WHILE IN THE HOSPITAL: Dr. Dillon Us with Urology. PROCEDURES WHILE IN THE HOSPITAL: Status post cystoscopy and right ureteral stent placement with Dr. Dillon Us today. STUDIES WHILE IN THE HOSPITAL: 1. KUB from 04/16/17. Radiologist's impression: Persistent stone at the right ureterovesical junction. 2. Bladder ultrasound from 04/16/17. Radiologist's impression: A 239 mL estimated pre-void urinary bladder volume. Upper normal 3.7 mm urinary bladder wall. No focal bladder lesion evident. Decreased magnitude right versus left ureteral junction. A 0.6 cm shadowing stone at the right ureterovesical junction without change compared with a prior CT. DISCHARGE MEDICATIONS: [place] Medications: 1. Famotidine 20 mg oral twice daily for 5 days. 2. Prednisone 50 mg oral in the morning followed by 40 mg on 04/18/17, followed by 30 mg on 04/19/17, followed by 20 mg on 04/20/17, followed by 10 mg on 04/21/17, and then stop. 3. Benadryl 25 mg oral every 6 hours around the clock for 24 hours and then as needed for allergy symptoms. 4. Amlodipine 5 mg oral daily. Continued Home Medications: 1. Lantus 30 units subcutaneous daily. 2. Atorvastatin 20 mg oral daily. 3. Valtrex 50 mg oral daily as needed for breakout. 4. Metformin ER 1000 mg oral twice daily. 5. Vascepa 2 g oral daily. Discontinued Home Medications: 1. Percocet 2. Cipro 3. Flomax 4. Lisinopril HISTORY OF PRESENT ILLNESS: Mr. Linn is a 41-year-old male with past medical history significant for kidney stone, diabetes mellitus, hypertension and hyperlipidemia, who presented to the emergency room with complaints of an allergic reaction after taking Percocet, Cipro and Flomax at home. The patient states that he first woke up with itching to his scalp, this then spread over his body. He then developed hives, wheezing, tongue swelling, and had lip tingling. The patient had an EpiPen at home due to a BEE allergy and administered his own EpiPen and then called EMS, who administered Benadryl and brought the patient to the emergency room for further evaluation of his symptoms. While in the emergency room, the patient received Solu-Medrol, Benadryl, albuterol nebulizer, IV fluids, and Zofran for his allergic reaction. The patient had a KUB showing a persistent stone at the right ureterovesical junction as he had been working on passing a kidney stone since Monday. He also had a bladder ultrasound showing a decreased magnitude in the right first left ureteral jet and the shadowing stone at the right ureterovesical junction without change compared to prior CT. The hospitalists were asked to evaluate the patient due to his anaphylactic reaction and his kidney stone. While in the hospital, the patient was mostly pain-free and comfortable. His allergic reaction symptoms have resolved. He was taken to the operating room by Dr. Us for a cystoscopy and right ureteral stent placement. In the recovery room, the patient was doing well other than some mild meatal discomfort and the patient reported feeling well. He had no further signs of an allergic reaction. He had a repeat glucose that was 275, he was provided with some insulin coverage for that. It was felt the patient was stable for discharge to home today. Mr. Linn is stable for discharge to home today. PHYSICAL EXAMINATION: Vital signs are as follows: Temperature 98.6, heart rate 90, respiratory rate 16, O2 sat 97% on room air, blood pressure 133/67. DISCHARGE PLAN: Mr. Linn will be discharged to home. ACTIVITY: As tolerated. DIET: He should be on a consistent carbohydrate diabetic diet. In concerns for the patient's anaphylactic reaction, he has been started on Pepcid 20 mg oral twice daily, for 5 days. He also has been placed on a prednisone taper and given a prescription for 10 mg tablets. He has been instructed to take prednisone oral daily with 50 mg being given on 04/17/17 followed by 40 mg on 04/18/17 followed by 30 mg oral on 04/19/17 followed by 20 mg on 04/20/17 and 10 mg on 04/21/17, and then stop. The patient has been instructed to continue taking Benadryl 25 mg oral every 6 hours around-the- clock for 24 hours and then he may take as needed. Due to the possibility that this was not allergic reaction to either Cipro, Flomax or Percocet, I have stopped the patient's lisinopril as this could have been an angioedema and he was on lisinopril. I would not give the patient FARHANA inhibitors in the future. For the patient's hypertension since I discontinued his lisinopril, I have started him on amlodipine 5 mg oral daily. He has been given a 30-day script for this. The patient has been asked to report LISINOPRIL, PERCOCET, CIPRO and FLOMAX as allergies since it is unclear exactly which of those medications caused severe reaction. As far as the patient's diabetes mellitus, he can resume his Lantus and metformin. For the patient's hyperlipidemia, he can resume his home atorvastatin and the Vascepa. The patient has been asked to call Dr. Us's office in the morning to set up a followup appointment in addition to calling Dr. Clark's office to set up a followup appointment. The patient has been asked to return to the emergency room for any shortness of breath or chest pain. This is a summarized report of a complex medical history and hospital stay. For further details, please see the entire medical record. TIME SPENT: Time for this discharge was approximately 50 minutes, greater than half of that was spent [id number] with the patient, discussing discharge plans and instructions. CONDITION ON DISCHARGE: Stable. Reviewed by ESPERANZA CARDENAS 04/24/17 2107 [id number]/[facility] #: [id number] YARELY
[2017-04-17] MEDS ORDERED: predniSONE TAB* 50 MG PO SCH (09:00)
[2017-04-17] MEDS ORDERED: Atorvastatin* 20 MG TAB PO SCH (09:00)
[2017-04-17] MEDS ORDERED: amLODIPine TAB* 5 MG PO SCH (09:00)
[2017-04-17] MEDS ORDERED: Lisinopril TAB* 5 MG PO SCH (09:00)
[2017-04-17] MEDS ORDERED: ICOSAPENT ETHYL PO SCH (09:00)
[2017-04-19] MEDS ORDERED: Scopolomine PATCH Remove* 1 NOTE MISC PATCH OFF ONE (14:13)
--- NOTE | 2017-04-28 15:38 | ED ---
Kim Hoyt Thomas, scribed for Jack Brown MD on 04/16/17 at 0424 . Allergic Reaction/Systemic - HPI Summary HPI Summary: The pt is a 41 y/o M BIBA c/o an allergic reaction that he first noticed when he woke up at 02:00. He took acetaminophen/oxycodone at approximately 09:00 last night. He took Floxam and Ciprofloxacin yesterday AM with his breakfast. He denies any recent changes to his routine. He complains of urticaria, pruritus to his head, tongue swelling, mild SOB, and minor wheezing. His symptoms have relieved considerably at time of examination in the ED. After he began to experience these symptoms, the patient self-administered an EpiPen that he normally keeps for his bee allergy (he is also allergic to ibuprofen). He was a patient at [facility] two days ago and was diagnosed with a kidney stone. He has not yet passed this kidney stone. He was told to follow up with Dr. Us this AM. He is passing urine as per normal in the ED. - History of Current Complaint Chief Complaint: EDAllergicReaction Time Seen by Provider: 04/16/17 03:47 Hx Obtained From: Patient Onset/Duration: Sudden Onset, Started minutes ago - onset today at 02:00, Still Present Timing: Constant Severity Currently: Moderate Pain Intensity: 6 Pain Scale Used: 0-10 Numeric Character: Pruritus Aggravating Factor(s): Nothing Alleviating Factor(s): Epinephrine Associated Signs And Symptoms: Positive: Other: - POS: urticaria, pruritus to his head, tongue swelling, mild SOB, minor wheezing - Related Hx Possible Reaction To: Medications - possibly reaction to acetaminophen/oxycodone - Allergies/Home Medications Allergies/Adverse Reactions: Allergies Allergy/AdvReac Type Severity Reaction Status Date / Time Bee Venom Allergy Severe Swelling Verified 04/14/17 03:18 Of Face,Lips,& Throat Ibuprofen Allergy Swelling Verified 04/14/17 03:18 PMH/Surg Hx/FS Hx/Imm Hx Previously Healthy: No Endocrine/Hematology History: Reports: Hx Diabetes - type II Denies: Hx Thyroid Disease Cardiovascular History: Reports: Hx Hypercholesterolemia Denies: Hx Hypertension, Hx Pacemaker/ICD Respiratory History: Reports: Hx Pneumonia Denies: Hx Asthma, Hx Chronic Obstructive Pulmonary Disease (COPD) GI History: Denies: Hx Ulcer History: Reports: Hx Kidney Stones Sensory History: Reports: Hx Contacts or Glasses, Hx Vision Problem, Hx Hearing Problem - 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 VASECTOMY. WISDOM TEETH Infectious Disease History: No Infectious Disease History: Denies: Hx Clostridium Difficile, Hx Hepatitis, Hx Human Immunodeficiency Virus (HIV), Hx of Known/Suspected MRSA, Hx Shingles, Hx Tuberculosis, Hx Known/ Suspected VRE, Hx Known/Suspected VRSA, History Other Infectious Disease, Traveled Outside the [place] in Last 30 Days - Family History Known Family History: Positive: Cardiac Disease, Diabetes, Other - Denies FHx of kidney stones - Social History Alcohol Use: Occasionally Alcohol Amount: a few times a week Substance Use Type: Reports: None, Marijuana Substance Use Comment - Amount & Last Used: occasionally Smoking Status (MU): Never Smoked Tobacco Have You Smoked in the Last Year: No Review of Systems Negative: Fever, Chills Negative: Erythema - eyes Positive: Other - POS: tongue swelling. Negative: Sore Throat Negative: Chest Pain Positive: Shortness Of Breath - mild SOB, Other - POS: minor wheezing. Negative : Cough Negative: Abdominal Pain, Vomiting, Nausea Negative: dysuria, hematuria Negative: Myalgia, Edema - legs Positive: Other - POS: urticaria, pruritus to his head. Negative: Rash Neurological: Other - NEG: dizziness All Other Systems Reviewed And Are Negative: Yes Physical Exam - Summary Physical Exam Summary: Constitutional: Well-developed, Well-nourished, Alert. (-) Distressed Skin: Warm, Dry. There are hives on his extremities, trunk, and back. No angioedema. HENT: Normocephalic; Atraumatic. Eyes: Conjunctiva normal Neck: Musculoskeletal ROM normal neck. (-) JVD, (-) Stridor, (-) Tracheal deviation Cardio: Rhythm regular, rate normal, Heart sounds normal; Intact distal pulses; The pedal pulses are 2+ and symmetric. Radial pulses are 2+ and symmetric. (-) Murmur Pulmonary/Chest wall: Effort normal. (-) Respiratory distress, (-) Wheezes, (-) Rales Abd: Soft, (-) Tenderness, (-) Distension, (-) Guarding, (-) Rebound Musculoskeletal: (-) Edema Lymph: (-) Cervical adenopathy Neuro: Alert, Oriented x3 Psych: Mood and affect Normal Triage Information Reviewed: Yes Vital Signs On Initial Exam: Initial Vitals Temp Pulse Resp BP Pulse Ox 98.5 F 87 14 148/91 99 04/16/17 03:35 04/16/17 03:35 04/16/17 03:35 04/16/17 03:35 04/16/17 03:35 Vital Signs Reviewed: Yes - Desdemona Coma Scale Coma Scale Total: 15 Diagnostics - Vital Signs Vital Signs Temp Pulse Resp BP Pulse Ox 04/16/17 03:42 86 20 98 04/16/17 03:40 150/72 04/16/17 03:35 98.5 F 87 14 148/91 99 - Laboratory Result Diagrams: 04/16/17 04:29 04/16/17 04:29 Lab Statement: Any lab studies that have been ordered have been reviewed, and results considered in the medical decision making process. - Radiology XR Abdo Xray Interpretation: Positive (See Comments) - Large stool burden Radiology Interpretation Completed By: ED Physician Re-Evaluation - Re-Evaluation First Eval Re-Evaluation Time: 07:07 Change: Improved Comment: At 07:07, the patient is still itchy and he has mild hives. His R sided pain is resolved after a BM. Nursing is helping him with an enema. Allergic Reaction Course/Dx - Course Assessment/Plan: The pt is a 41 y/o M BIBA c/o an allergic reaction that he first noticed when he woke up at 02:00. He took acetaminophen/oxycodone at approximately 09:00 last night. He took Floxam and Ciprofloxacin yesterday AM with his breakfast. He denies any recent changes to his routine. He complains of urticaria, pruritus to his head, tongue swelling, mild SOB, and minor wheezing. His symptoms have relieved considerably at time of examination in the ED. After he began to experience these symptoms, the patient self-administered an EpiPen that he normally keeps for his bee allergy (he is also allergic to ibuprofen). He was a patient at [facility] ED two days ago and was diagnosed with a kidney stone. He has not yet passed this kidney stone. He was told to follow up with Dr. Us this AM. He is passing urine as per normal in the ED. In the ED course the patient was given albuterol, Pepcid, magnesium citrate, morphine, Iv fluids, Zofran, sodium phosphate, Benadryl, and Solu-Medrol. Bloodwork shows WBC 12.0, Hct 41, creatinine 1.28, and glucose 328. Abdo XR shows a large stool burden. At 07:07, the patient is still itchy and he has mild hives. His R sided pain is resolved after a BM. Nursing is helping him with an enema. At 07:[address] Us, who is interested in a detailed status of the stone disease. He wanted an US of the bladder. If the stone is still present, the patient will require operative management. Pain control will be done by the hospitalist. Since we administered magnesium citrated, he felt the case could be delayed. He recommended NPO. The patient is diagnosed with anaphylaxis and abdominal pain. The patient will be signed out from Dr. Brown to Dr. Wilson at shift change pending bladder US. Patient is stable and agreeable to this plan. - Diagnoses Provider Diagnoses: Anaphylaxis, Abdominal pain - Provider Notifications Discussed Care Of Patient With: Dillon Us Time Discussed With Above Provider: 07:25 Instructed by Provider To: Other - I consulted with Dr. Us, who is interested in a detailed status of the stone disease. He wanted an US of the bladder. If the stone is still present, the patient will require operative management. Pain control will be done by the hospitalist. Since we administered magnesium citrated, he felt the case could be delayed. He recommended NPO. Discharge - Discharge Plan Condition: Stable Disposition: OTHER Discharge Disposition Comment: Signed out from Dr. Brown to Dr. Burnett at shift change. Referrals: Leroy Clark MD [Primary Care Provider] - The documentation as recorded by the Kim foley Thomas accurately reflects the service I personally performed and the decisions made by me, Jack Brown MD.
== END 2017-04-16 19:15 | disposition home or self-care (01) ==
LOC: ED 03:22 → SSU 08:53
PROVIDERS: ADMIT Internal Medicine; ATTEND Internal Medicine
DX: N13.2 Hydronephrosis with renal and ureteral calculous obstruction (principal); T78.2XXA Anaphylactic shock, unspecified, initial encounter; E78.5 Hyperlipidemia, unspecified; E11.9 Type 2 diabetes mellitus without complications; Z79.4 Long term (current) use of insulin; Z79.899 Other long term (current) drug therapy; Z88.1 Allergy status to other antibiotic agents; Z91.030 Bee allergy status; Z91.09 Other allergy status, other than to drugs and biological substances
CPT/HCPCS: 36415; 74000; 74420; 76857; 80048; 82365; 85027; 88300; 93005; 96374; 96375; 99285; A9270-GY; C1876; G0378; J1100; J1200; J1580; J2250; J2270; J2405; J2704; J2930; J3010; J7512

== ENCOUNTER 2017-07-16 17:53 | Emergency (ER) | payer OTHER ==
[2017-07-16 18:17] VITALS: BP 133/83
--- NOTE | 2017-07-16 18:27 | UC ---
Eye Complaint HPI - HPI Summary HPI Summary: 42 year old male presents with right upper eyelid swelling. - History of Current Complaint Chief Complaint: UCEye Stated Complaint: SWOLLEN EYE Time Seen by Provider: 07/16/17 18:25 Hx Obtained From: Patient Onset/Duration: Sudden Onset Timing: Constant Severity Currently: Moderate - Allergies/Home Medications Allergies/Adverse Reactions: Allergies Allergy/AdvReac Type Severity Reaction Status Date / Time Bee Venom Allergy Severe Swelling Verified 07/16/17 18:19 Of Face,Lips,& Throat Acetaminophen [From Percocet] Allergy Anaphylatic Verified 07/16/17 18:19 Shock Ciprofloxacin [From Cipro] Allergy Anaphylatic Verified 07/16/17 18:19 Shock Ibuprofen Allergy Swelling Verified 07/16/17 18:19 Oxycodone [From Percocet] Allergy Anaphylatic Verified 07/16/17 18:19 Shock Tamsulosin [From Flomax] Allergy Anaphylatic Verified 07/16/17 18:19 Shock Home Medications: Home Medications Naproxen [Naprosyn 500 mg] 07/16/17 [History] PMH/Surg Hx/FS Hx/Imm Hx Previously Healthy: Yes - Surgical History Surgical History: None Surgery Procedure, Year, and Place: LEFT KNEE BONE SPUR REMOVAL, ACL REPAIR. VASECTOMY. WISDOM TEETH - Family History Known Family History: Positive: Cardiac Disease, Diabetes, Other - Denies FHx of kidney stones - Social History Alcohol Use: Occasionally Alcohol Amount: a few times a week Substance Use Type: None, Marijuana Substance Use Comment - Amount & Last Used: occasionally Smoking Status (MU): Never Smoked Tobacco Have You Smoked in the Last Year: No - Immunization History Most Recent Influenza Vaccination: unk Most Recent Pneumonia Vaccination: 15 years ago Review of Systems Constitutional: Negative Skin: Negative Eyes: Eye Redness, Other - right eyelid swelling ENT: Negative Respiratory: Negative Cardiovascular: Negative Gastrointestinal: Negative Genitourinary: Negative Motor: Negative Neurovascular: Negative Musculoskeletal: Negative Neurological: Negative Psychological: Negative All Other Systems Reviewed And Are Negative: Yes Physical Exam Triage Information Reviewed: Yes Vital Signs: Initial Vital Signs Temp 37.1 C 07/16/17 18:08 Pulse 75 07/16/17 18:08 Resp 16 07/16/17 18:08 BP 133/83 07/16/17 18:08 Pulse Ox 99 07/16/17 18:08 Eyes: Positive: Other: - right upper eyelid swelling ENT Exam: Normal Dental Exam: Normal Neck exam: Normal Neck: Positive: 1 Respiratory Exam: Normal Cardiovascular Exam: Normal Abdominal Exam: Normal Musculoskeletal Exam: Normal Neurological Exam: Normal Psychological Exam: Normal Skin Exam: Normal Eye Complaint Course/Dx - Differential Dx/Diagnosis Provider Diagnoses: right periorbital cellulitis Discharge - Discharge Plan Condition: Stable Disposition: HOME Prescriptions: Amoxicillin/Clavulanate TAB* [Augmentin TAB 875*] 875 mg PO BID #20 tab Methylprednisolone [Medrol Dosepak 4 MG*] 4 mg PO .SEE KRISTIN INSTRUCTION #21 tab Tobramycin/Dexameth OPTH.SUSP* [Tobradex 0.3-0.1%*] 1 drop RIGHT EYE Q4H #1 btl Patient Education Materials: Periorbital Cellulitis in Adults (ED) Referrals: Leroy Clark MD [Primary Care Provider] - Jann Loredo MD [Medical Doctor] -
[2017-07-16] MEDS ORDERED: Tobramycin 0.3% OPHTH.SOL* 5 ML BOT (regular eye drops) RIGHT EYE ONE (18:29)
[2017-07-16] MEDS: predniSONE TAB* 20 MG PO ONE ×2 (18:37→18:55)
[2017-07-16] MEDS: Amoxicillin/Clavulanate TAB* 875 MG PO ONE ×2 (18:37→18:55)
[2017-07-16] MEDS ORDERED: Amoxicillin/Clavulanate TAB* 875 MG PO ONE (18:40)
[2017-07-16] MEDS ORDERED: predniSONE TAB* 20 MG PO ONE (18:41)
== END 2017-07-16 18:51 | disposition home or self-care (01) ==
LOC: UCEAST 17:53
DX: L03.213 Periorbital cellulitis (principal); F12.90 Cannabis use, unspecified, uncomplicated; Z72.89 Other problems related to lifestyle
CPT/HCPCS: 99213; A9270-GY; G0463; J7512

== ENCOUNTER 2018-01-14 11:30 | Emergency (ER) | payer OTHER ==
[2018-01-14 11:42] VITALS: BP 144/89
--- NOTE | 2018-01-14 12:01 | UC ---
Skin Complaint HPI - HPI Summary HPI Summary: patient has a large are of purulence around and on the underside of the right index finger. - History of Current Complaint Chief Complaint: UCSkin Time Seen by Provider: 01/14/18 11:56 Stated Complaint: SOFT TISSUE Hx Obtained From: Patient Onset/Duration: Sudden Onset, Lasting Hours Skin Exposure Onset/Duration: Hours Ago Timing: Constant Onset Severity: Mild Current Severity: Mild Pain Intensity: 8 Location: Discrete, Hand (Right) Character: Swelling, Redness, Painful Aggravating Factor(s): Touch Associated Signs & Symptoms: Positive: Drainage, Tenderness - Allergy/Home Medications Allergies/Adverse Reactions: Allergies Allergy/AdvReac Type Severity Reaction Status Date / Time acetaminophen [From Percocet] Allergy Anaphylatic Verified 01/14/18 11:44 Shock bee venom protein (honey bee) Allergy Swelling Verified 01/14/18 11:44 Of Face,Lips,& Throat ciprofloxacin [From Cipro] Allergy Anaphylatic Verified 01/14/18 11:44 Shock ibuprofen Allergy Swelling Verified 01/14/18 11:44 oxycodone [From Percocet] Allergy Anaphylatic Verified 01/14/18 11:44 Shock Review of Systems Constitutional: Negative Skin: Other - purulent drainage, swelling, erythema Eyes: Negative ENT: Negative Respiratory: Negative Cardiovascular: Negative Gastrointestinal: Negative Genitourinary: Negative Motor: Negative Neurovascular: Negative Musculoskeletal: Negative Neurological: Negative Psychological: Negative Is Patient Immunocompromised?: No All Other Systems Reviewed And Are Negative: Yes PMH/Surg Hx/FS Hx/Imm Hx Previously Healthy: Yes - Surgical History Surgical History: None Surgery Procedure, Year, and Place: LEFT KNEE BONE SPUR REMOVAL, ACL REPAIR. VASECTOMY. WISDOM TEETH - Family History Known Family History: Positive: Cardiac Disease, Diabetes, Other - Denies FHx of kidney stones - Social History Alcohol Use: Weekly Alcohol Amount: a few times a week Substance Use Type: Marijuana Substance Use Comment - Amount & Last Used: monthly Smoking Status (MU): Never Smoked Tobacco Have You Smoked in the Last Year: No - Immunization History Most Recent Influenza Vaccination: unk Most Recent Pneumonia Vaccination: 15 years ago Physical Exam Triage Information Reviewed: Yes Appearance: Well-Appearing, Well-Nourished, Pain Distress Vital Signs: Initial Vital Signs Temp 97.9 F 01/14/18 11:40 Pulse 98 01/14/18 11:40 Resp 18 01/14/18 11:40 BP 144/89 01/14/18 11:40 Pulse Ox 100 01/14/18 11:40 Vital Signs Reviewed: Yes Eye Exam: Normal ENT Exam: Normal Dental Exam: Normal Neck exam: Normal Cardiovascular Exam: Normal Abdominal Exam: Normal Musculoskeletal Exam: Normal Neurological Exam: Normal Psychological Exam: Normal Skin: Positive: significant lesion(s) - erythema, swelling, purulent drainage Course/Dx - Course Course Of Treatment: hx obtained, exam performed ,meds reviewed, I and d of paraonychia completed - Differential Diagnoses - Skin Complaint Differential Diagnoses: Cellulitis, Urticaria - Diagnoses Provider Diagnoses: paronychia Discharge - Sign-Out/Discharge Documenting (check all that apply): Discharge/Admit/Transfer - Discharge Plan Condition: Stable Disposition: HOME Patient Education Materials: Paronychia (ED) Referrals: Leroy Clark MD [Primary Care Provider] - Additional Instructions: 1. take the medication as prescribed. 2. warm water soaks frequently throughout the day. 3. Elevated the finger at rest. 4. Follow up if not improving. - Billing Disposition and Condition Condition: STABLE Disposition: Home
[2018-01-14] MEDS ORDERED: cefTRIAXone VIAL(*) 1,000 MG VIAL IM ONE (12:32)
[2018-01-14] MEDS ORDERED: Lidocaine 1% MPF* 2 ML VIAL INJ ONE (12:32)
[2018-01-14] MEDS ORDERED: Lidocaine 1%* 5 ML VIAL ONE (12:38)
[2018-01-14] MEDS ORDERED: Lidocaine 1% INJ* 10 MG/ML 30 ML SDV INJ ONE (12:47)
--- NOTE | 2018-01-18 10:21 | UC ---
- Progress Note Progress Note: Pt with 3+ staph on wound culture prelim pt on bactrim no change khanh 01/18/2018 Discharge - Sign-Out/Discharge Documenting (check all that apply): Post-Discharge Follow Up - Discharge Plan Condition: Stable Disposition: HOME Prescriptions: Sulfamethox/Trimethoprim DS* [Bactrim DS 800/160 TAB*] 1 tab PO BID #14 tab Patient Education Materials: Paronychia (ED) Referrals: Leroy Clark MD [Primary Care Provider] - Additional Instructions: 1. take the medication as prescribed. 2. warm water soaks frequently throughout the day. 3. Elevated the finger at rest. 4. Follow up if not improving. - Billing Disposition and Condition Condition: STABLE Disposition: Home
== END 2018-01-14 13:00 | disposition home or self-care (01) ==
LOC: UCEAST 11:30
DX: L03.011 Cellulitis of right finger (principal); Z88.5 Allergy status to narcotic agent; Z88.6 Allergy status to analgesic agent; Z88.1 Allergy status to other antibiotic agents; Z91.030 Bee allergy status; Z82.49 Family history of ischemic heart disease and other diseases of the circulatory system; Z83.3 Family history of diabetes mellitus
CPT/HCPCS: 10060; 87070; 87077; 87186; 87205; 87640; 87641; 96372; 99212; G0463; J0696

== ENCOUNTER 2019-02-23 13:52 | Emergency (ER) | payer OTHER ==
[2019-02-23] MEDS ORDERED: methylPREDNISolone 125 MG* 2 ML VIAL IV ONE (14:01)
[2019-02-23] MEDS ORDERED: Famotidine IV* 10 MG/ML 2 ML (20 mg) IV SLOW PU ONE (14:01)
[2019-02-23] MEDS ORDERED: diPHENhydraMINE IV* 50 MG/ML 1 ml VIAL (BENADRYL) IV ONE ×2 (14:02→14:03)
[2019-02-23] MEDS ORDERED: NS 0.9% 1000 ML** 1,000 ML IV ONE (14:04)
--- NOTE | 2019-02-23 14:18 | UC ---
General HPI - HPI Summary HPI Summary: Patient presents to urgent care with his daughter. Patient states approximately 30 minutes ago he was stung by an insect, he thinks a bee. 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 Patient states he took 25 mg of Benadryl. Patient states he started to feel itchy in his armpits and like he has to clear his throat. Patient denies a rash. Patient denies lightheaded. No nausea vomiting. No difficulty swallowing. No swelling of his tongue or face. Patient has an EpiPen but did not use it. Patient has used in the past. Patient does not have a headache or vision changes. Medications reviewed this visit. - History of Current Complaint Chief Complaint: UCAllergicReaction Stated Complaint: BEE STING Hx Obtained From: Patient Onset/Duration: Gradual Onset Onset Severity: Mild Current Severity: Mild Pain Intensity: 0 - Allergy/Home Medications Allergies/Adverse Reactions: Allergies Allergy/AdvReac Type Severity Reaction Status Date / Time acetaminophen [From Percocet] Allergy Anaphylatic Verified 02/23/19 13:56 Shock bee venom protein (honey bee) Allergy Swelling Verified 02/23/19 13:56 Of Face,Lips,& Throat ciprofloxacin [From Cipro] Allergy Anaphylatic Verified 02/23/19 13:56 Shock ibuprofen Allergy Swelling Verified 02/23/19 13:56 oxycodone [From Percocet] Allergy Anaphylatic Verified 02/23/19 13:56 Shock PMH/Surg Hx/FS Hx/Imm Hx Previously Healthy: Yes - Surgical History Surgical History: Yes Surgery Procedure, Year, and Place: LEFT KNEE BONE SPUR REMOVAL, ACL REPAIR. VASECTOMY. WISDOM TEETH - Family History Known Family History: Positive: Cardiac Disease, Diabetes, Other - Denies FHx of kidney stones, Non-Contributory - Social History Occupation: Employed Full-time Lives: With Family Alcohol Use: None Alcohol Amount: a few times a week Substance Use Type: Marijuana Substance Use Comment - Amount & Last Used: monthly Smoking Status (MU): Never Smoked Tobacco Have You Smoked in the Last Year: No - Immunization History Most Recent Influenza Vaccination: unk Most Recent Pneumonia Vaccination: 15 years ago Review of Systems All Other Systems Reviewed And Are Negative: Yes Constitutional: Positive: Negative Skin: Positive: Other - stings on right forearm, right upper back ENT: Positive: Other - "little hard to swallow" Motor: Positive: Negative Neurovascular: Positive: Negative Musculoskeletal: Positive: Negative Neurological: Positive: Negative Psychological: Positive: Negative Is Patient Immunocompromised?: No Physical Exam - Summary Physical Exam Summary: Vital Signs Reviewed: Yes A+Ox3, no distress Eyes: Conjunctiva Clear, HOWARD. EOM intact and full ENT: Hearing grossly normal TM x 2 clear, mmoist, uvula midline, no exudate, no erythema, no intraoral edema Neck: Positive: Supple Respiratory: Positive: No respiratory distress, No accessory muscle use + CTA throughout no w/r, speaking full sentences, no stridor Cardiovascular: RRR nl s1, s2 no m/r CBT <2 sec abd soft + BS nt/nd no guarding, no distension Musculoskeletal Exam: INTERIANO x 4 without difficulty Strength Intact, ROM Intact Neurological: Positive: Alert, + sensation throughout Psychological: Positive: Normal Response To examiner Skin: Positive: no hives, pt with sting lesions right forearm, right upper back Triage Information Reviewed: Yes Vital Signs: Initial Vital Signs Temp 97.8 F 02/23/19 13:57 Pulse 99 02/23/19 13:57 Resp 18 02/23/19 13:57 BP 153/93 02/23/19 13:57 Pulse Ox 97 02/23/19 13:57 Re-Evaluation - Re-Evaluation First Eval Re-Evaluation Time: 14:10 Change: Unchanged Second Eval Re-Evaluation Time: 14:25 Change: Improved Third Eval Re-Evaluation Time: 14:35 Comment: "better every minute", VSS Fourth Eval Re-Evaluation Time: 15:21 Comment: feeling well- drowsy but no other sx. Will Rx pepcid, pred. refill epi. strict return precautions. avoid NSAID. avoid heat Course/Dx - Course Course Of Treatment: Patient presents to urgent care with apparent allergic reaction following the sting from an infected, likely be. Patient with a history of anaphylaxis to a wasp. Patient does have an EpiPen but did not use it. Patient a 25 g of Benadryl prior to arrival. States was stung approximately 30 minutes ago. Patient states feels kind of itchy and like he has to clear his throat. No difficulty breathing. No swelling in his mouth. No difficulty swallowing. Vital signs are stable. Patient minimally anxious with erythema at site sustains but no overt hives. Patient without any intraoral edema or facial swelling on exam. No stridor. We'll place an IV and give Solu-Medrol, Pepcid, and 25 mg of additional Benadryl. We'll watch her closely. Epi at the bedside. Patient comfortable in agreement with plan. Patient's will be coming to urgent care. BP elevated - related to condition at triage - improved during course of care - Diagnoses Provider Diagnosis: Allergic reaction to insect sting Discharge - Sign-Out/Discharge Documenting (check all that apply): Patient Departure All imaging exams completed and their final reports reviewed: No Studies - Discharge Plan Condition: Stable Disposition: HOME Prescriptions: EPINEPHrine [Epipen 2-Tigre] 0.3 mg IJ ONCE #1 auto.injct Famotidine TAB* [Pepcid 20 MG TAB*] 20 mg PO DAILY #12 tab predniSONE TAB* [Deltasone TAB*] 50 mg PO DAILY #4 tab Patient Education Materials: Insect Bite or Sting (ED), General Allergic Reaction (ED) Referrals: Leroy Clark MD [Primary Care Provider] - Additional Instructions: - Take prednisone exactly as prescribed until gone - starting tomorrow - Okay to take Benadryl (1-2 tablets) every 6 hours as needed. This medication may cause drowsiness - do NOT drive, operate machinery or drink alcohol while taking Benadryl. -Take pepcid as prescribed - 2 times daily for 7 days starting tomorrow -Avoid getting over heated (hot showers, hot tubs, exercise) for at least 48 hours - Try to avoid aspirin, NSAIDs (Motrin, Aleve, Naprosyn) for 2-3 days - Okay to apply cool compresses to the area of injury -Contact your doctor or return here with questions or concerns - Billing Disposition and Condition Condition: STABLE Disposition: Home
[2019-02-23 14:41] VITALS: BP 127/84
== END 2019-02-23 15:39 | disposition home or self-care (01) ==
LOC: UCEAST 13:52
DX: T63.481A Toxic effect of venom of other arthropod, accidental (unintentional), initial encounter (principal); Y92.9 Unspecified place or not applicable; Z88.5 Allergy status to narcotic agent; Z91.030 Bee allergy status
CPT/HCPCS: 96360; 96374; 96375; 99201; G0463; J1200; J2930

== ENCOUNTER 2019-06-21 17:54 | Emergency (ER) | payer OTHER ==
--- OUTSIDE RECORDS SUMMARY | 2019-06-21 18:01 | XMS REPORT | Continuity of Care Document ---
:1975 External Reference #:[id number] Author Name Shari Hussein M.D. Address [address] [place] [address] Care Team Providers Name Role Phone Leroy Clark M.D. Care Team Information Civil Engineer [employer] [phone] Problems Active Problems Provider Date Allergy status to unspecified drugs, Shari Hussein M.D. Onset: 2018 medicaments and biological substances status Toxic effect of venom of bees, accidental Shari Hussein M.D. Onset: (unintentional), initial encounter Social History Type Date Description Comments Sex Unknown ETOH Use Occasionally consumes alcohol Tobacco Use Start: Unknown Patient has never smoked Recreational Drug Use Former Drug User deloris Allergies, Adverse Reactions, Alerts Active Allergies Reaction Severity Comments Date Ibuprofen anaphylaxis Severe 05/29/2019 Medications Active Medications SIG Qnty Indications Ordering Date Provider Auvi-Q use as directed. im. 4units T63.441A Shari Chan 05/29/2019 0.3mg/0.3ML Lee Hussein Solution Auto-Inject Lantus Inject 30 Units Unknown 100Unit/ML Subcutaneously Every Solution Morning Metformin HCL TK 1 T PO bid Unknown 1000mg Tablets Atorvastatin Take 1 Tablet By Mouth Unknown Calcium Once Daily 20mg Tablets Acyclovir apply topically to Unknown 5% affected area three Ointment times a day if needed Tramadol HCL take 1 tablet by mouth Unknown 50mg every 6 hours if Tablets needed Epinephrine inject intramuscularly Unknown if needed 0.3mg/0.3ML Solution Auto-Inject Vascepa Unknown 1gm Capsules Immunizations Description No Information Available Vital Signs Date Vital Result Comment 05/29/2019 9:36am Height 68 inches 5'8" Weight 202.00 lb Weight 91.627 kg Respiratory Rate 16 /min Heart Rate 89 /min O2 % BldC Oximetry 96 % BP Systolic 126 mmHg BP Diastolic 67 mmHg BMI (Body Mass Index) 30.7 kg/m2 Results Description No Information Available Procedures Description No Information Available Medical Devices Description No Information Available Encounters Type Date Location Provider Dx Diagnosis Office Visit 05/29/2019 [facility] Shari Hussein, T63.441A Toxic effect of 9:40a M.D. venom of bees, accidental, init Z88.9 Allergy status to unsp drug/meds/biol subst status Assessments Date Code Description Provider 05/29/2019 T63.441A Toxic effect of venom of bees, accidental Shari Hussein M.D. (unintentional), initial encounter 05/29/2019 Z88.9 Allergy status to unspecified drugs, Shari Hussein M.D. medicaments and biological substances status Plan of Treatment 05/29/2019 - Shari Hussein M.D.T63.441A Toxic effect of venom of bees, accidental (unintentional), initial encounterNew Medication:Auvi-Q 0.3 mg/0.3ML - use as directed. im.New Labs:Rast Ige WF Hornet i2, Ordered: 05/29/19Rast Ige [place] Hornet i5, Ordered: 05/29/19Rast Ige YLw JKT/Comm Wasp I3, Ordered: Rast Ige Paper Wasp I4, Ordered: 05/29/19Rast Ige Honey Bee i1, Ordered: 05/29Tryptase, Serum, Ordered: 05/29/19Recommendations:Venom Avoidance check IgE to venoms: paper wasp, white faced hornet, yellow hornet, yellow jacket, honeybee check tryptase Risks/benefits of IT discussed AuviQ 0.3 prescribed - indications for use reviewed and technique demonstrated.Z88.9 Allergy status to unspecified drugs, medicaments and biological substances statusFollow up:call in 2 weeks to review labsRecommendations:continue Ibuprofen avoidance Functional Status Description No Information Available Mental Status Description No Information Available Referrals Description No Information Available
[2019-06-21 18:45] VITALS: BP 165/90
--- NOTE | 2019-06-21 19:19 | UC ---
Cardiac HPI - HPI Summary HPI Summary: Mr. Linn has had some mild upper back pain for a few days. This morning he had pain down into his right arm. He did play hockey last evening but does not believe that he got injured. He denies any other symptoms. His pain is atypical in that it is in the right lateral arm down to the elbow. There are no exacerbating or relieving factors. It comes and goes and lasts about 10 minutes when it comes. There are no associated symptoms. - History of Current Complaint Chief Complaint: UCUpperExtremity Stated Complaint: RT SHOULDER PAIN Time Seen by Provider: 06/21/19 18:55 Hx Obtained From: Patient Onset/Duration: Sudden Onset Timing: Constant Initial Severity: Severe Current Severity: Severe Pain Intensity: 9 Character: Dull/Aching Aggravating Factor(s): Nothing Alleviating Factor(s): Nothing Associated Signs & Symptoms: Positive: Negative - Allergy/Home Medications Allergies/Adverse Reactions: Allergies Allergy/AdvReac Type Severity Reaction Status Date / Time acetaminophen [From Percocet] Allergy Anaphylatic Verified 06/21/19 18:45 Shock bee venom protein (honey bee) Allergy Swelling Verified 06/21/19 18:45 Of Face,Lips,& Throat ciprofloxacin [From Cipro] Allergy Anaphylatic Verified 06/21/19 18:45 Shock ibuprofen Allergy Swelling Verified 06/21/19 18:45 oxycodone [From Percocet] Allergy Anaphylatic Verified 06/21/19 18:45 Shock PMH/Surg Hx/FS Hx/Imm Hx Endocrine History: Diabetes - Surgical History Surgical History: Yes Surgery Procedure, Year, and Place: LEFT KNEE BONE SPUR REMOVAL, ACL REPAIR. VASECTOMY. WISDOM TEETH - Family History Known Family History: Positive: Cardiac Disease, Diabetes, Other - Denies FHx of kidney stones, Non-Contributory - Social History Alcohol Use: Weekly Alcohol Amount: a few times a week Substance Use Type: Marijuana Substance Use Comment - Amount & Last Used: monthly Smoking Status (MU): Never Smoked Tobacco Have You Smoked in the Last Year: No - Immunization History Most Recent Influenza Vaccination: unk Most Recent Pneumonia Vaccination: 15 years ago Review of Systems All Other Systems Reviewed And Are Negative: Yes Physical Exam - Summary Physical Exam Summary: Is nontoxic in appearance with stable vital signs. When the pain hits it is clear he is in significant distress. Triage Information Reviewed: Yes Appearance: Pain Distress Vital Signs: Initial Vital Signs Temp 97.7 F 06/21/19 18:40 Pulse 89 06/21/19 18:40 Resp 18 06/21/19 18:40 BP 165/90 06/21/19 18:40 Pulse Ox 99 06/21/19 18:40 Vital Signs Reviewed: Yes ENT Exam: Normal Neck: Positive: Supple - Mild tenderness in the right paracervical area Respiratory Exam: Normal Cardiovascular Exam: Normal Abdominal Exam: Normal Musculoskeletal Exam: Other - Some mild tenderness in the right rhomboid area Neurological Exam: Normal Psychological Exam: Normal Diagnostics - EKG Cardiac Rate: NL Cardiac Rhythm: Sinus: Normal Ectopy: None ST Segment: Normal EKG Comparison: No Significant Change - Assessment/Plan Course Of Treatment: Seems likely that this is musculoskeletal pain however he is diabetic and the pain is very atypical. An EKG was obtained here and is unremarkable for any acute ischemic change. I think he needs a more thorough evaluation and recommended the emergency department. He is willing to go but wants his to give him a ride over rather than go by ambulance. - Clinical Impression Provider Diagnosis: Arm pain, right Discharge ED - Sign-Out/Discharge Documenting (check all that apply): Patient Departure All imaging exams completed and their final reports reviewed: No Studies - Discharge Plan Condition: Stable Disposition: HOME-RECOMMEND TO ED Referrals: Leroy Clark MD [Primary Care Provider] - Additional Instructions: I don't have a good explanation for Mr. Linn's waxing and waning right arm pain. His EKG is okay but I cannot rule out a cardiac event. He said the pain for a number of hours and would prefer to have his take him over to the emergency department. He understands the necessity of getting a more thorough evaluation in the emergency department this evening and agrees to go. I hope this turns out to be a musculoskeletal issue although it is very atypical for that. - Billing Disposition and Condition Condition: STABLE Disposition: Home-Recommend to ED
== END 2019-06-21 19:30 | disposition home health service (06) ==
LOC: UCEAST 17:54
DX: M79.601 Pain in right arm (principal); E11.9 Type 2 diabetes mellitus without complications; Z88.6 Allergy status to analgesic agent; Z88.1 Allergy status to other antibiotic agents; Z88.5 Allergy status to narcotic agent; Z91.030 Bee allergy status
CPT/HCPCS: 93005; 99212; G0463

== ENCOUNTER 2019-06-21 20:17 | Emergency (ER) | payer OTHER ==
[2019-06-21 23:28] VITALS: BP 160/94
== END 2019-06-21 23:25 | disposition left against medical advice (07) ==
LOC: ED 20:17
DX: Z53.21 Procedure and treatment not carried out due to patient leaving prior to being seen by health care provider (principal); M54.9 Dorsalgia, unspecified; M79.601 Pain in right arm
CPT/HCPCS: 99281

== ENCOUNTER 2019-06-22 05:00 | Emergency (ER) | payer OTHER ==
--- NOTE | 2019-06-22 07:15 | ED ---
Upper Extremity Pain - HPI Summary HPI Summary: 44-year-old insulin-dependent type 2 diabetic presents to emergency department today complaining of right arm pain which began yesterday. He states his arm pain as a 10 out of 10 and is made worse with rest and better with movement. He states this pain radiates down his right arm and it feels like "someone punched him really hard". He has not taken any pain medication prior to arrival due to his allergies. He states he also had associated upper back pain which began on Monday06/17/2019 (5 days ago) and he also reports playing ice hockey yesterday which he says may be the cause of this pain. He denies any injury or falls during this ice hockey event. He was seen yesterday in the urgent care and told to come to the emergency department to rule out possible cardiac causes of his pain however he left without being seen due to the long wait. He denies fever, chest pain, abdominal pain, shortness of breath, diaphoresis, headache, lightheadedness, pain and urination, rash. - History of Current Complaint Chief Complaint: EDExtremityUpper Stated Complaint: SHOULDER PAIN PER PT Time Seen by Provider: 06/22/19 06:58 Hx Obtained From: Patient Mechanism Of Injury: Unknown Onset/Duration: Started Days Ago Timing: Constant Severity Initially: Moderate Severity Currently: Severe Pain Location: Shoulder, Arm Character: Aching Aggravating Factor(s): Other - rest Alleviating Factor(s): OTC Meds, Heat Associated Signs & Symptoms: Positive: Back Pain. Negative: Swelling, Redness, Bruising, Fever, Weakness, Numbness/Tingling, Chest Pain, SOB, Neck Pain, Diaphoresis, Nausea, Vomiting Related History: Dominant Hand Right - Allergies/Home Medications Allergies/Adverse Reactions: Allergies Allergy/AdvReac Type Severity Reaction Status Date / Time acetaminophen [From Percocet] Allergy Anaphylatic Verified 06/21/19 20:41 Shock bee venom protein (honey bee) Allergy Swelling Verified 06/21/19 20:41 Of Face,Lips,& Throat ciprofloxacin [From Cipro] Allergy Anaphylatic Verified 06/21/19 20:41 Shock ibuprofen Allergy Swelling Verified 06/21/19 20:41 oxycodone [From Percocet] Allergy Anaphylatic Verified 06/21/19 20:41 Shock PMH/Surg Hx/FS Hx/Imm Hx Endocrine/Hematology History: Reports: Hx Diabetes - type 2 dm Denies: Hx Thyroid Disease Cardiovascular History: Reports: Hx Hypercholesterolemia Denies: Hx Hypertension, Hx Pacemaker/ICD Respiratory History: Reports: Hx Pneumonia, Other Respiratory Problems/ Disorders - sob during allery reation Denies: Hx Asthma, Hx Chronic Obstructive Pulmonary Disease (COPD) GI History: Denies: Hx Ulcer History: Reports: Hx Kidney Stones Sensory History: Reports: Hx Contacts or Glasses, Hx Vision Problem, Hx Hearing Problem - 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 VASECTOMY. WISDOM TEETH Hx Anesthesia Reactions: No Infectious Disease History: No Infectious Disease History: Denies: Hx Clostridium Difficile, Hx Hepatitis, Hx Human Immunodeficiency Virus (HIV), Hx of Known/Suspected MRSA, Hx Shingles, Hx Tuberculosis, Hx Known/ Suspected VRE, Hx Known/Suspected VRSA, History Other Infectious Disease, Traveled Outside the [place] in Last 30 Days - Family History Known Family History: Positive: Cardiac Disease, Diabetes, Other - Denies FHx of kidney stones, Non-Contributory - Social History Alcohol Use: Weekly Alcohol Amount: a few times a week Substance Use Type: Reports: Marijuana Substance Use Comment - Amount & Last Used: monthly Smoking Status (MU): Never Smoked Tobacco Have You Smoked in the Last Year: No Review of Systems Constitutional: Negative Cardiovascular: Negative Respiratory: Negative Gastrointestinal: Negative Genitourinary: Negative Positive: Myalgia. Negative: Decreased ROM Skin: Negative Neurological: Negative Psychological: Normal All Other Systems Reviewed And Are Negative: Yes Physical Exam - Summary Physical Exam Summary: No ecchymosis or swelling noted to the bilateral upper extremities. Radial pulses are 2+ bilaterally and capillary refill is brisk. Strength is 5 out of 5 throughout the upper extremity with full range of motion bilaterally. There is mild tenderness to palpation of the tricep but no evidence of trauma. Patient's pain is made worse with empty can test and Woodward test. Drop arm test negative sensation is intact throughout the upper extremities. Triage Information Reviewed: Yes Vital Signs On Initial Exam: Initial Vitals Temp Pulse Resp BP Pulse Ox 96.5 F 93 20 155/108 98 06/22/19 05:05 06/22/19 05:05 06/22/19 05:05 06/22/19 05:05 06/22/19 05:05 Vital Signs Reviewed: Yes Appearance: Positive: Well-Appearing, No Pain Distress, Well-Nourished Skin: Positive: Warm, Skin Color Reflects Adequate Perfusion Eyes: Positive: EOMI, HOWARD ENT: Positive: Hearing grossly normal Neck: Positive: Nontender Respiratory/Lung Sounds: Positive: Clear to Auscultation, Breath Sounds Present Cardiovascular: Positive: RRR, Pulses are Symmetrical in both Upper and Lower Extremities, S1, S2 Abdomen Description: Positive: Nontender, Soft Bowel Sounds: Positive: Present Musculoskeletal: Positive: Strength/ROM Intact, Other Neurological: Positive: Sensory/Motor Intact, Alert, Oriented to Person Place, Time, Facial Symmetry, Speech Normal Psychiatric: Positive: Normal AVPU Assessment: Alert Procedures - Sedation Patient Received Moderate/Deep Sedation with Procedure: No Diagnostics - Vital Signs Vital Signs Temp Pulse Resp BP Pulse Ox 06/22/19 05:05 96.5 F 93 20 155/108 98 - Laboratory Lab Statement: Any lab studies that have been ordered have been reviewed, and results considered in the medical decision making process. Course/Dx - Course Course Of Treatment: Patient was evaluated in the emergency department today for right arm pain. The patient was seen and evaluated. It was determined no laboratory studies or imaging is required for evaluation of this patient. Cardiac origin for his pain was considered very unlikely due to his history and no aggravation with exertion and he had no complaints of chest pain, SOB, abdominal pain or jaw pain. Physical exam revealed a likely cause is due to muscle strain right arm. he was given a prescription for 10 mg of Valium for 4 days which may be taken from moderate pain. This analgesic question chosen due to his allergies of acetaminophen and ibuprofen. He is told to follow up with his PCP on Monday for further evaluation and management of his symptoms. He was told to alternate heat and ice for alleviation of his pain and to practice pendulum exercises. he was told to return to the emergency department immediately if he developed any new or worsening symptoms. Patient agrees with this plan. - Diagnoses Differential Diagnosis/HQI/PQRI: Positive: Fracture (Closed), Strain, Sprain Provider Diagnoses: Muscle strain of right upper arm - Physician Notifications Discussed Care of Patient With: Timbo Blancas Discharge ED - Sign-Out/Discharge Documenting (check all that apply): Patient Departure - Discharge Plan Condition: Stable Disposition: HOME Prescriptions: Diazepam TAB(*) [Valium TAB(*)] 10 mg PO Q8H PRN #12 tab MDD 3 PRN Reason: Pain - Moderate Patient Education Materials: Muscle Strain (ED) Referrals: Leroy Clark MD [Primary Care Provider] - 2 Days Additional Instructions: You were seen in the emergency Department today due to the pain in your right arm. It is likely the cause of this pain is overuse and muscle strain. For alleviation of your symptoms I have sent Valium to your pharmacy which you may take as needed for pain. You should alternate ice and heat on your arm 20 minutes on and 20 minutes off for today and then alternate heat alone for 20 minutes on 20 minutes off for the next 2 days after that until alleviation of your symptoms. It is important to use your shoulder as much as you are able to avoid impingement of the joint. Please follow up with your primary care provider in a few days for further evaluation and management of your symptoms. Please return to emergency department immediately if you develop any new or worsening symptoms. - Billing Disposition and Condition Condition: STABLE Disposition: Home - Attestation Statements Provider Attestation: I was available for consult. This patient was seen by the [facility]. The patient was not presented to, seen by, or examined by me. Timbo Blancas MD
[2019-06-22 07:49] VITALS: BP 161/115
== END 2019-06-22 07:48 | disposition home or self-care (01) ==
LOC: ED 05:00
DX: S46.911A Strain of unspecified muscle, fascia and tendon at shoulder and upper arm level, right arm, initial encounter (principal); X58.XXXA Exposure to other specified factors, initial encounter; Y92.9 Unspecified place or not applicable; E11.9 Type 2 diabetes mellitus without complications; E78.00 Pure hypercholesterolemia, unspecified; Z88.6 Allergy status to analgesic agent; Z88.1 Allergy status to other antibiotic agents; Z88.5 Allergy status to narcotic agent
CPT/HCPCS: 93005; 99282

== ENCOUNTER 2019-06-22 19:18 | Emergency (ER) | payer OTHER ==
[2019-06-22] MEDS ORDERED: Morphine 4 MG/ML VIAL (1 ml) 4 MG/ML VIAL IM ONE ×2 (20:33→21:34)
--- NOTE | 2019-06-22 20:34 | ED ---
Upper Extremity Pain - HPI Summary HPI Summary: Patient complains of pain radiating from right scapula, right arm, numbness and tingling to right thumb second and third digits 4 days. Pain is intermittent, occasionally severe. Denies trauma, fever, cough, sore throat, CP, SOB commenced persistent abdominal pain, change in urine, change in BM. Seen in this ED this morning for same, diagnosed with muscle strain started on Valium 10 mg by mouth 3 times a day. Patient evaluated by PCP today started on prednisone and hydrocodone. Patient states pain is severe and he can't sleep, returns for evaluation. Medical history is diabetes. - History of Current Complaint Chief Complaint: EDExtremityUpper Stated Complaint: RT SHOULDER PAIN PER PT Time Seen by Provider: 06/22/19 20:15 Hx Obtained From: Patient Mechanism Of Injury: Unknown Onset/Duration: Started Days Ago Timing: Intermittent, Lasting Minutes Severity Initially: Severe Severity Currently: Severe Pain Location: Shoulder, Arm, Hand, Finger Character: Sharp, Aching, Throbbing Aggravating Factor(s): Nothing Alleviating Factor(s): Nothing Associated Signs & Symptoms: Positive: Negative - Allergies/Home Medications Allergies/Adverse Reactions: Allergies Allergy/AdvReac Type Severity Reaction Status Date / Time acetaminophen [From Percocet] Allergy Anaphylatic Verified 06/21/19 20:41 Shock bee venom protein (honey bee) Allergy Swelling Verified 06/21/19 20:41 Of Face,Lips,& Throat ciprofloxacin [From Cipro] Allergy Anaphylatic Verified 06/21/19 20:41 Shock ibuprofen Allergy Swelling Verified 06/21/19 20:41 oxycodone [From Percocet] Allergy Anaphylatic Verified 06/21/19 20:41 Shock PMH/Surg Hx/FS Hx/Imm Hx Endocrine/Hematology History: Reports: Hx Diabetes - type 2 dm Denies: Hx Thyroid Disease Cardiovascular History: Reports: Hx Hypercholesterolemia Denies: Hx Hypertension, Hx Pacemaker/ICD Respiratory History: Reports: Hx Pneumonia, Other Respiratory Problems/ Disorders - sob during allery reation Denies: Hx Asthma, Hx Chronic Obstructive Pulmonary Disease (COPD) GI History: Denies: Hx Ulcer History: Reports: Hx Kidney Stones Sensory History: Reports: Hx Contacts or Glasses, Hx Vision Problem, Hx Hearing Problem - 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 VASECTOMY. WISDOM TEETH Hx Anesthesia Reactions: No Infectious Disease History: No Infectious Disease History: Denies: Hx Clostridium Difficile, Hx Hepatitis, Hx Human Immunodeficiency Virus (HIV), Hx of Known/Suspected MRSA, Hx Shingles, Hx Tuberculosis, Hx Known/ Suspected VRE, Hx Known/Suspected VRSA, History Other Infectious Disease, Traveled Outside the [place] in Last 30 Days - Family History Known Family History: Positive: Cardiac Disease, Diabetes, Other - Denies FHx of kidney stones, Non-Contributory - Social History Alcohol Use: Weekly Alcohol Amount: a few times a week Substance Use Type: Reports: Marijuana Substance Use Comment - Amount & Last Used: monthly Smoking Status (MU): Never Smoked Tobacco Have You Smoked in the Last Year: No Review of Systems Constitutional: Negative Eyes: Negative ENT: Negative Cardiovascular: Negative Respiratory: Negative Gastrointestinal: Negative Genitourinary: Negative Musculoskeletal: Other Skin: Negative Neurological: Negative Psychological: Normal All Other Systems Reviewed And Are Negative: Yes Physical Exam - Summary Physical Exam Summary: Extreme tenderness along right trapezius and muscle surrounding right scapula. No pain with palpation of right shoulder or right arm. Full range of motion right shoulder, right elbow and right wrist. Strength normal versus left. Patient has normal function of right hand despite description of numbness in first 3 digits. Tenderness along the right sternocleidomastoid muscle Triage Information Reviewed: Yes Vital Signs On Initial Exam: Initial Vitals Temp Pulse Resp BP Pulse Ox 98.2 F 93 18 158/104 98 06/22/19 19:21 06/22/19 19:21 06/22/19 19:21 06/22/19 19:21 06/22/19 19:21 Vital Signs Reviewed: Yes Appearance: Positive: Well-Appearing Skin: Positive: Warm Head/Face: Positive: Normal Head/Face Inspection Eyes: Positive: Normal Neck: Positive: Supple Respiratory/Lung Sounds: Positive: Clear to Auscultation Cardiovascular: Positive: Normal Abdomen Description: Positive: Nontender Musculoskeletal: Positive: Normal Neurological: Positive: Normal Psychiatric: Positive: Normal AVPU Assessment: Alert - [place] Coma Scale Best Eye Response: 4 - Spontaneous Best Motor Response: 6 - Obeys Commands Best Verbal Response: 5 - Oriented Coma Scale Total: 15 Procedures - Sedation Patient Received Moderate/Deep Sedation with Procedure: No Diagnostics - Vital Signs Vital Signs Temp Pulse Resp BP Pulse Ox 06/22/19 19:21 98.2 F 93 18 158/104 98 - Laboratory Lab Statement: Any lab studies that have been ordered have been reviewed, and results considered in the medical decision making process. Course/Dx - Course Course Of Treatment: Patient complains of pain radiating from right scapula, right arm, numbness and tingling to right thumb second and third digits 4 days. Pain is intermittent, occasionally severe. Denies trauma, fever, cough, sore throat, CP, SOB commenced persistent abdominal pain, change in urine, change in BM. Seen in this ED this morning for same, diagnosed with muscle strain started on Valium 10 mg by mouth 3 times a day. Patient evaluated by PCP today started on prednisone and hydrocodone. Patient states pain is severe and he can't sleep, returns for evaluation. Medical history is diabetes. Vital signs are normal limits. CT cervical spine is for degenerative disc disease. Symptoms consistent with radiculopathy, muscle spasm, nerve impingement. Patient currently taking prednisone and hydrocodone and naproxen. Also provided with lidocaine patch. - Diagnoses Provider Diagnoses: Radiculopathy affecting upper extremity, Muscle spasm Discharge ED - Sign-Out/Discharge Documenting (check all that apply): Patient Departure - Discharge Plan Condition: Stable Disposition: HOME Prescriptions: Lidocaine PATCH 5%* [Lidoderm 5% Patch*] 1 patch TRANSDERM DAILY 6 Days #6 patch Patient Education Materials: Paresthesia (ED), Cervical Radiculopathy (ED), Muscle Spasm (ED) Referrals: Leroy Clark MD [Primary Care Provider] - Kash Carr MD [Medical Doctor] - Additional Instructions: Take naproxen as directed in addition to your hydrocodone. Use lidocaine patches directed. Take prednisone as directed. If symptoms persist more than 1 week follow-up with neurology Dr. Carr for further evaluation. Return to the ED for any worsening symptoms. - Billing Disposition and Condition Condition: STABLE Disposition: Home
[2019-06-22] MEDS ORDERED: Lidocaine PATCH 5%* 1 PATCH TRANSDERM SCH (21:59)
[2019-06-22 22:18] VITALS: BP 152/99
[2019-06-23] MEDS ORDERED: Lidocaine Patch REMOVE* 1 NOTE MISC SCH (21:00)
== END 2019-06-22 22:17 | disposition home or self-care (01) ==
LOC: ED 19:18
DX: M54.10 Radiculopathy, site unspecified (principal); M62.838 Other muscle spasm
CPT/HCPCS: 72125; 96372; 99282; A9270-GY; J2270

== ENCOUNTER 2019-08-30 06:58 | Day surgery (SDC) | payer OTHER ==
[~2019-08-30 06:58] MED LIST changes: +Buffered Lidocaine 1% SYRIN* 1 ML/SYRINGE INTRADERM ONE; +Famotidine IV* 10 MG/ML 2 ML (20 mg) IV ONE; -GENTAMICIN ADULT IVPB ONE; -Ketorolac INJ* 30 MG/ML 1 ML VIAL IV ONE; +Lactated Ringers 1000 ML Bag* 1,000 ML IV SCH; -NS 0.9% 1000 ML* 2,000 ML IV ONE; -NS 0.9% 1000 ML* 500 ML IV ONE; -NS 0.9% IVPB ONE; -Ondansetron INJ* 2 MG/ML VIAL IV ONE
[2019-08-30] MEDS ORDERED: Famotidine IV* 10 MG/ML 2 ML (20 mg) ONE (07:44)
[2019-08-30] MEDS ORDERED: Buffered Lidocaine 1% SYRIN* 1 ML/SYRINGE INTRADERM ONE (07:44)
[2019-08-30] MEDS ORDERED: Midazolam* 1 MG/ML 10 ML VIAL (10 MG) ONE (08:33)
[2019-08-30] MEDS ORDERED: KETAMINE HCL* 50 MG/ML 10 ML VIAL ONE (08:33)
[2019-08-30] MEDS ORDERED: Lidocaine 2% PF * 5 ML VIAL ONE (08:33)
[2019-08-30] MEDS ORDERED: Glycopyrrolate IV* 0.2 MG/ML 1 ML VIAL ONE (08:33)
[2019-08-30] MEDS ORDERED: fentaNYL* 50 MCG/ML 2 ML VIAL (100 MCG VIAL) ONE ×4 (08:33→11:53)
[2019-08-30] MEDS ORDERED: Propofol* 10 MG/ML 20 ML BTL ONE (08:33)
[2019-08-30] MEDS ORDERED: Dexamethasone IV* 4 MG/ML 1 ML (4 MG) ONE (09:56)
[2019-08-30] MEDS ORDERED: Ondansetron INJ* 2 MG/ML VIAL ONE (09:57)
[2019-08-30] MEDS: Gadoteridol* (CONTRAST) 279.3 MG/ML 10 ML IV ONE ×2 (10:57→11:01)
[2019-08-30] MEDS ORDERED: HYDROmorphone INJ1* 1 MG/ML SYRINGE ONE ×2 (11:08→11:19)
[2019-08-30] MEDS ORDERED: Naloxone* 0.4 MG/ML 1 ML VIAL IV PRN (11:15)
[2019-08-30] MEDS ORDERED: Ondansetron INJ* 2 MG/ML VIAL IV PRN (11:15)
[2019-08-30] MEDS: HYDROmorphone INJ1* 1 MG/ML SYRINGE IV PRN ×2 (11:20→11:28)
[2019-08-30] MEDS: fentaNYL* 50 MCG/ML 2 ML VIAL (100 MCG VIAL) IV PRN ×5 (11:32→11:56)
[2019-08-30 13:30] VITALS: BP 144/88
== END 2019-08-30 13:30 | disposition home or self-care (01) ==
LOC: OR 06:58
PROVIDERS: ATTEND Orthopaedic Surgery
DX: M47.22 Other spondylosis with radiculopathy, cervical region (principal); M25.521 Pain in right elbow; M48.02 Spinal stenosis, cervical region; M47.812 Spondylosis without myelopathy or radiculopathy, cervical region; E11.9 Type 2 diabetes mellitus without complications; Z79.4 Long term (current) use of insulin; Z79.84 Long term (current) use of oral hypoglycemic drugs; E78.5 Hyperlipidemia, unspecified; F41.8 Other specified anxiety disorders
CPT/HCPCS: 72141; A9579; J1100; J1170; J2250; J2405; J2704; J3010